=== PATIENT | male | born 1930 | race Caucasian/White ===

== ENCOUNTER 2016-11-13 11:24 | Inpatient (IN) | payer OTHER ==
[~2016-11-13] VITALS: Ht 180.3 cm; Wt 84.0 kg
[2016-11-13] VITALS (18 sets, daily range): BP systolic 72–116; BP diastolic 41–88; PULSE 81–149; TEMP 37–37.1; O2SAT 96–100; Ht 180.3 cm; Wt 84.0 kg
[~2016-11-13 11:24] MED LIST: ACET325T96 PO; ALLO300T2 PO; ASPI-428 PO; BRIM0.1S OPB; CALC600T9 PO; CARV6.252 PO; CYAN100020 PO; DICL1GEL28 TOP; DXY100 PO; FERR325T51 PO; FINA5TAB PO; FISHOIL PO; FOLI1TAB7 PO; GABA800T PO; IPRASOL4 INH; LATA0.009 OPB; LISI-461 PO; MULT-190 PO; MULTTAB PO; NTRGSL/4 UT; POTA1TAB97 PO; PRVC10 PO; SENN-65 PO; SPRIN/30 INH; TERA1CAP63 PO; TRAM-10 PO; TRIA1SPR2 NAE
[2016-11-13] MEDS ORDERED: ERTAPENEM IV 1 GM in SODIUM CHLOR 0.9% AD-VAN 50ML 50 ML IV ONE (12:53)
[2016-11-13] MEDS ORDERED: TRAMADOL HCL 50 MG TAB PO PRN (13:00)
[2016-11-13] MEDS ORDERED: NURSING VERBAL MED ORDER ONE (13:00)
[2016-11-13] MEDS ORDERED: GABAPENTIN 800 MG TAB PO SCH (13:00)
[2016-11-13] MEDS ORDERED: NITROGLYCERIN 0.4 MG SL PER TAB CHARGE UT PRN (13:00)
[2016-11-13] MEDS ORDERED: ERTAPENEM IV 1 GM in SODIUM CHLOR 0.9% AD-VAN 50ML 50 ML IV SCH (13:00)
[2016-11-13 13:31] LABS: HEMATOCRIT 37.6 % (42-52); MEAN CELL VOLUME 88.5 fL (80-100); MEAN CORPUSCULAR HEMOGLOBIN 30.6 pg (25-34); MEAN CORPUSCULAR HGB CONC 34.6 g/dl (32-36); MEAN PLATELET VOLUME 11.1 fL (7.4-10.4); PLATELET COUNT 292 K/uL (130-400); RED BLOOD COUNT 4.25 M/uL (4.7-6.1); WHITE BLOOD COUNT 21.66 K/uL (4.8-10.8)
[2016-11-13 13:45] LABS: INR 1.2 (0.9-1.1); PARTIAL THROMBOPLASTIN RATIO 1.4; PROTHROMBIN TIME (PATIENT) 12.7 SECONDS (9.0-12.0)
[2016-11-13 13:50] LABS: ALT/SGPT 10 U/L (12-78); AST/SGOT 28 U/L (15-37); BLOOD UREA NITROGEN 68 mg/dl (7-18); BUN/CREATININE RATIO 37.9 (10-20); CALCIUM 9.4 mg/dl (8.5-10.1); CARBON DIOXIDE 20 mmol/L (21-32); CHLORIDE 119 mmol/L (98-107); GLUCOSE 118 mg/dl (70-99); SODIUM 151 mmol/L (136-145)
[2016-11-13 13:52] LABS: ALB/GLOB RATIO 0.4 (0.9-2); ALKALINE PHOSPHATASE 93 U/L (45-117)
[2016-11-13] MEDS ORDERED: SODIUM CHLORIDE 0.9% 1000ML 1,000 ML IV ONE (14:30)
--- NOTE | 2016-11-13 14:41 | DIAGNOSTIC IMAGING REPORT ---
CHEST ONE VIEW PORTABLE CLINICAL HISTORY: sepsis COMPARISON STUDY: 08/16/2016 FINDINGS: There are asymmetric bibasal interstitial opacities, similar to the prior study. There is mild right lung volume loss. There is no acute lobar consolidation. There is no significant pleural fluid. The heart is the upper limits of normal in size. There is aortic tortuosity.[ IMPRESSION: Asymmetric micronodular interstitial lung disease right greater than left. Electronically signed by: Roland Davis M.D. 11/13/2016 2:39 PM
[2016-11-13] MEDS ORDERED: METOPROLOL TARTRATE 1 MG/ML VIAL IV PRN (14:45)
[2016-11-13] MEDS ORDERED: AZTREONAM 2000 MG in DEXTROSE 5% 100 ML IV ONE (15:00)
[2016-11-13] MEDS ORDERED: INFLUENZA VIRUS QUAD VACCINE 0.5 ML SYR IM. ONE (15:00)
[2016-11-13] MEDS ORDERED: INFLUENZA ADMINISTRATION CHARGE ONE (15:00)
[2016-11-13] MEDS ORDERED: AZTREONAM CONSULT ACTIVE PRN ×2 (15:00)
[2016-11-13] MEDS ORDERED: ERTAPENEM IV 1 GM in SODIUM CHLOR 0.9% AD-VAN 50ML IV ONE (15:45)
[2016-11-13] MEDS ORDERED: INVANZ~PHARMACY CONSULT IN PROGRESS PRN (15:45)
[2016-11-13] MEDS ORDERED: HEPARIN SOD 5000 UNIT/0.5 ML CARP SQ STA (15:59)
[2016-11-13] MEDS: ALBUT/IPRATROP 3MG/0.5MG NEB 3 ML VIAL INH SCH ×2 (16:12→20:00)
[2016-11-13] MEDS ORDERED: SODIUM CHLORIDE 0.45% 1000ML 1,000 ML IV SCH (17:00)
[2016-11-13] MEDS ORDERED: DIGOXIN IV 250 MCG in SYRINGE 9 ML IV ONE (19:30)
[2016-11-13] MEDS: CARVEDILOL 6.25 MG TAB PO SCH (19:56)
[2016-11-13] MEDS: LATANOPROST 0.005% OP SOLN 2.5 ML BTL OPB SCH (19:57)
[2016-11-13] MEDS: PRAVASTATIN SOD 10 MG TAB PO SCH (19:57)
[2016-11-13] MEDS: DOCUSATE SODIUM/SENNA 50/8.6MG TAB PO SCH (19:57)
[2016-11-13] MEDS ORDERED: CEROVITE ADV FORMULA TAB PO SCH (21:00)
[2016-11-13] MEDS: METOPROLOL TARTRATE 1 MG/ML VIAL IV PRN (21:19)
[2016-11-13] MEDS ORDERED: LEVALBUTEROL 1.25MG/0.5ML NEB INH PRN (21:30)
[2016-11-13] MEDS ORDERED: IPRATROPIUM BROMIDE NEB SOLN 0.02% 2.5 ML VIAL INH PRN (21:30)
[2016-11-13] MEDS: ALBUMIN HUMAN 25% 12.5 GM/50 ML VIAL IV SCH (21:54)
[2016-11-13] MEDS: HEPARIN SOD 5000 UNIT/0.5 ML CARP SQ SCH (21:57)
[2016-11-13 22:29] LABS: BUN/CREATININE RATIO 38.8 (10-20); CALCIUM 9.3 mg/dl (8.5-10.1); POTASSIUM 4.6 mmol/L (3.5-5.1)
--- NOTE | 2016-11-13 23:03 | HISTORY & PHYSICAL EXAMINATION ---
DATE OF ADMISSION: 11/13/2016 PRIMARY CARE PHYSICIAN: As I was told Dr. Avalos from [facility], he lives at [facility]. CHIEF COMPLAINT: Not been eating, drinking and inability to take oral medications this morning. HISTORY OF PRESENT COMPLAINT: He is an 86-year-old male with a significant past medical history including coronary artery disease status post RCA stent in 2008, chronic kidney disease stage III, hyperlipidemia, gout, heterozygous for factor V Leiden mutation, hypertension, obstructive sleep apnea on CPAP, and also benign prostatic hypertrophy, has a chronic indwelling catheter, apparently he resides in [facility]. He was noted to have declining in his general condition for the last few days. He has not been eating or drinking enough and this morning he did not take his oral medications and noted to have further declination of his health and he was advised to come to the hospital. On of this month, he has had a urine test that showed E. coli with ESBL strain and the caring doctor in the [facility] wanted to give IV antibiotic, but no IV medication could be given at [facility] and the patient was transferred to hospital for ongoing treatment. On the way to the hospital, the ambulance crew noticed to have heart rate to be irregular and going up 140 at times. At [facility] on the medical floor, he was not having any acute distress, but EKG did show aFib with a rate of 139 and his blood pressure was systolic 80. From that point, he was transferred to telemetry unit for continuation of care. He was started with intravenous fluid and also blood cultures are taken and he was started with ertapenem IV route. PAST MEDICAL HISTORY: Significant for CAD status post LAD stent in 2008 and RCA stent in 2008 as well, chronic kidney disease, hyperlipidemia, gout, dementia, heterozygous for factor V Leiden mutation, hypertension, obstructive sleep apnea. PAST SURGICAL HISTORY: Significant for vasectomy. FAMILY HISTORY: Diabetes mellitus and also a history of cancer and hypertension. SOCIAL HISTORY: He resides at [facility]. He is . He needs assistance in activities of daily living. ALLERGIES: HE IS ALLERGIC TO AMINOGLYCOSIDES, BACITRACIN, NEOMYCIN, POLYMYXIN, MOLDS AND SMUTS, PENICILLINS, CRESTOR MEDICATIONS: That needs to be updated, but the notes suggests that he has been on Tylenol 650 mg 4 hourly p.r.n., allopurinol 300 mg daily, Voltaren gel as directed, doxycycline 100 mg b.i.d., fish oil 300 mg t.i.d., lisinopril 10 mg daily, Hytrin 10 mg twice daily, calcium 1 tablet daily, ferrous sulfate 325 mg daily, potassium 20 mEq twice daily, aspirin 81 mg daily, Alphagan 1% solution 1 drop OPB t.i.d., Coreg 6.25 mg b.i.d., vitamin B12 1000 units daily, Proscar 5 mg daily, folic acid 1 mg daily, Neurontin 800 mg 4 times daily, DuoNebs 3 mL solution 1 treatment 4 times daily, Xalatan 0.005% one drop OPB q.p.m., multivitamin 1 tablet daily, Nitrostat 0.4 mg sublingual as directed, Ocuvite 1 tablet twice daily, pravastatin 10 mg daily, senna 1 tablet twice daily, Spiriva HandiHaler 1 capsule daily, Ultram 50 mg tablet 2 tablets q. 6 hourly p.r.n. and Nasacort spray as directed. REVIEW OF SYSTEMS: Systemic review as in history of present illness. PHYSICAL EXAMINATION: GENERAL: On the medical floor, he was not having any acute distress. VITAL SIGNS: Temperature 37.0, pulse 130s blood pressure 88/60, saturation 96% on room air, respirations 20. HEENT: Unremarkable. NECK: Supple. No JVD, no bruit. CHEST: Clear to auscultate. HEART: S1, S2 regular. ABDOMEN: Soft, benign. Bowel sounds present. No masses. EXTREMITIES: Negative for any edema. CENTRAL NERVOUS SYSTEM: He was alert and awake, pleasantly confused. LABORATORY DATA: Noted today white count was 21.66, H\T\H 13.0/37.6, platelets was 292. Sodium 151, potassium 5.0, chloride 119, carbon dioxide 20, BUN 68, creatinine 1.80, lactic acid still pending. Random glucose 118. Liver function tests pending. PT/INR unremarkable. UA examination pending. IMAGING DATA: Chest x-ray pending. EKG did show atrial fibrillation, rate of [address]-T wave changes. IMPRESSION AND PLAN: 1. Urinary tract infection with Extended Spectrum Beta-Lactamase bacteria, sensitive to ertapenem. The patient was started with an intravenous fluid for possible sepsis. He does have increased white count and low blood pressure and increased heart rate as well with atrial fibrillation. He will be admitted to telemetry floor and he will be monitored for tachycardia and atrial fibrillation may be secondary to sepsis. 2. Coronary artery disease with a history of cardiac stent, he does not have any cardiac symptoms at this time. Continue with aspirin and hold his beta tonia for low blood pressure. 3. Hypertension. His blood pressure seems to be low at this time, likely secondary to sepsis. Will start his usual medications with the blood pressure is up. 4. Chronic kidney disease. His creatinine went up to 1.8 today. He will get adequate IV fluid and monitor kidney function while in the hospital. 5. Obstructive sleep apnea on CPAP, will continue with his home CTAP. 6. Gastrointestinal prophylaxis with a proton pump inhibitor. 7. Deep venous thrombosis prophylaxis with subcutaneous heparin. 8. Code status. That will need to be discussed with the family members and go from there. As per the previous record, he was do not resuscitate with limited intervention. In my clinical judgment, the beneficiary meets criteria as per CMS for 2-midnight stay in the hospital. BRIGETTE
[2016-11-13 23:04] LABS: URINE APPEARANCE TURBID (CLEAR); URINE COLOR DK YELLOW; URINE NITRITE POS (NEG); URINE SPECIFIC GRAVITY 1.021 (1.000-1.030); UROBILINOGEN NEG (NEG); ZZURINE CULT IF INDIC CATH YES
[2016-11-13 23:05] LABS: MANUAL MICROSCOPIC REQUIRED? NO; REVIEW REQ? YES
[2016-11-13 23:06] LABS: URINE BILIRUBIN NEG (NEG)
[2016-11-13 23:14] LABS: URINE PATH CASTS 0-3 GRANULAR CASTS /lpf (0)
[2016-11-14] VITALS (12 sets, daily range): BP systolic 84–126; BP diastolic 55–111; PULSE 94–134; TEMP 36.3–37; O2SAT 88–100
[2016-11-14] MEDS ORDERED: AZTREONAM IV 1,000 MG in DEXTROSE 5% 100ML IV SCH ×2
[2016-11-14] MEDS ORDERED: DILTIAZEM HCL 5 MG/ML 5 ML VIAL IV STA
[2016-11-14] MEDS: DEXTROSE 5% 1000ML 1,000 ML IV SCH ×2 (00:33→07:53)
[2016-11-14] MEDS ORDERED: NURSING VERBAL MED ORDER ONE (02:30)
[2016-11-14] MEDS ORDERED: MoRPHine SULFATE 4 MG/ML 1 ML CARP\\VIAL ONE (02:32)
[2016-11-14] MEDS ORDERED: LEVALBUTEROL/IPRATROPIUM NEB INH SCH (03:00)
[2016-11-14] MEDS: METOPROLOL TARTRATE 1 MG/ML VIAL IV PRN (03:24)
[2016-11-14] MEDS: ALBUMIN HUMAN 25% 12.5 GM/50 ML VIAL IV SCH ×3 (03:26→16:38)
[2016-11-14] MEDS: LEVALBUTEROL 1.25MG/0.5ML NEB INH SCH ×4 (04:02→19:33)
[2016-11-14] MEDS: IPRATROPIUM BROMIDE NEB SOLN 0.02% 2.5 ML VIAL INH SCH ×4 (04:02→19:33)
[2016-11-14] MEDS: HEPARIN SOD 5000 UNIT/0.5 ML CARP SQ SCH ×3 (05:37→22:14)
[2016-11-14 06:24] LABS: HEMATOCRIT 34.1 % (42-52); MEAN CELL VOLUME 89.5 fL (80-100); MEAN CORPUSCULAR HEMOGLOBIN 29.7 pg (25-34); MEAN CORPUSCULAR HGB CONC 33.1 g/dl (32-36); MEAN PLATELET VOLUME 10.9 fL (7.4-10.4); PLATELET COUNT 250 K/uL (130-400); RED BLOOD COUNT 3.81 M/uL (4.7-6.1); WHITE BLOOD COUNT 14.62 K/uL (4.8-10.8)
[2016-11-14 06:56] LABS: BUN/CREATININE RATIO 34.5 (10-20); CALCIUM 9.1 mg/dl (8.5-10.1); CREATININE 1.9 mg/dl (0.60-1.40); MAGNESIUM 2.9 mg/dl (1.8-2.4); PHOSPHORUS 3.5 mg/dl (2.5-4.9); POTASSIUM 4.3 mmol/L (3.5-5.1)
[2016-11-14] MEDS: MoRPHine SULFATE 4 MG/ML 1 ML CARP\\VIAL IV PRN (07:53)
[2016-11-14] MEDS: CARVEDILOL 6.25 MG TAB PO SCH ×2 (08:01→20:33)
[2016-11-14] MEDS: TRIAMCINOLONE ACET NASAL SPRAY 10.8ML BTL NAE SCH (08:01)
[2016-11-14] MEDS: TIOTROPIUM BROMIDE 5 PUFF/90 MCG INH INH SCH (08:01)
[2016-11-14] MEDS: DOCUSATE SODIUM/SENNA 50/8.6MG TAB PO SCH ×2 (08:02→20:33)
[2016-11-14] MEDS: ASPIRIN 81 MG ECTAB PO SCH (08:02)
[2016-11-14] MEDS: CEROVITE ADV FORMULA TAB PO SCH (08:02)
[2016-11-14] MEDS: FINASTERIDE 5 MG TAB PO SCH (08:02)
[2016-11-14] MEDS: CYANOCOBALAMIN 500 MCG TAB (VIT B-12) PO SCH (08:02)
[2016-11-14] MEDS ORDERED: SODIUM CHLORIDE 0.45% 1000ML 1,000 ML IV SCH (08:15)
[2016-11-14] MEDS: D5W AND 1/2NSS 1,000 ML IV SCH ×2 (08:45→20:34)
[2016-11-14] MEDS: METOPROLOL TARTRATE 1 MG/ML VIAL IV SCH ×3 (11:27→20:31)
--- NOTE | 2016-11-14 13:23 | Progress Note ---
Internal Med Progress Note Date of Service: Nov 14, 2016. Provider Documentation: SUBJECTIVE: The patient seen and examined Remains semiresponsive OBJECTIVE: Vital Signs-as noted below Exam: General-No apparent distress Eyes-Normal ENT-normal Neck-Supple Lungs-Transmitted sound Minimal bibasilar crackles Heart-Irregular Abdomen-Benign,bowel sound present Extremities-No edema Neuro-AA Semiresponsive Lab data as noted below. ASSESSMENT & PLAN: Sepsis secondary to UTI Met the criteria of Sepsis on admission Lactic acid-normal Has had Hypotension on admission-Improved with IVF UTI secondary to Extended Spectrum Beta-Lactamase bacteria, Sensitive to ertapenem. IVF and IV Ertapenem Blood Culture-Gm neg Bacilli in one bottle Urine Culture on 11/11/16 -ESBL ,Repeat Culture-pending Atrial Fibrillation with RVR AF likely secondary to Sepsis Has been on IV BB Received 2 doses of Digoxin Rate is not yet controlled Hypernatremia Likely secondary to Dehydration Continue IVF and recheck Coronary artery disease with a history of cardiac stent, he does not have any cardiac symptoms at this time. Continue with aspirin and hold his Coreg for low blood pressure. Hypertension. His blood pressure seems to be low at this time, likely secondary to sepsis. Will start his usual medications with the blood pressure is up. Acute Renal Failure Chronic kidney disease. His creatinine went up to 1.8 today. IVF and Monitor Obstructive sleep apnea on CPAP, will continue with his home CTAP. Can use his own CPAP Gastrointestinal prophylaxis with a proton pump inhibitor. Deep venous thrombosis prophylaxis with subcutaneous heparin. Code Status:DNR -discussed with the Son Vital Signs: Date Time Temp Pulse Resp B/P Pulse Ox O2 Delivery O2 Flow Rate FiO2 11/14/16 12:00 37.0 134 24 113/70 88 Nasal Cannula 2.0 11/14/16 12:00 97 Nasal Cannula 2.0 11/14/16 11:27 141 113/70 11/14/16 08:00 97 Nasal Cannula 2.0 11/14/16 06:57 36.7 127 20 119/72 97 Nasal Cannula 2.0 Humidified Oxygen 11/14/16 04:03 101 20 98 Nasal Cannula 2.0 11/14/16 04:00 Nasal Cannula 11/14/16 03:24 123 107/66 11/14/16 03:09 116 107/66 11/14/16 02:23 128 121/111 11/14/16 00:23 128 126/63 1/1/17 00:11 36.9 131 20 84/68 98 Nasal Cannula 11/13/16 23:59 Nasal Cannula 11/13/16 23:53 130 108/45 11/13/16 22:30 120 108/56 11/13/16 21:58 118 21 104/52 98 Nasal Cannula 2.0 11/13/16 21:19 143 108/43 11/13/16 20:00 Nasal Cannula 11/13/16 19:56 145 11/13/16 19:30 37.1 145 20 95/72 99 Nasal Cannula 2.0 11/13/16 17:29 102 18 72/56 100 11/13/16 17:14 151 95/55 11/13/16 16:59 85 16 95/55 100 11/13/16 16:29 126 20 96/56 100 11/13/16 16:13 130 20 96 Nasal Cannula 3.0 11/13/16 16:00 100 Nasal Cannula 3.0 11/13/16 15:59 81 20 96/76 100 11/13/16 15:29 89 20 93/44 100 11/13/16 15:06 104 18 81/57 100 11/13/16 14:59 85 17 72/41 100 11/13/16 14:29 103 21 93/76 100 11/13/16 13:59 115 21 95/62 99 11/13/16 13:55 37.0 149 19 116/88 96 Nasal Cannula 3.0 11/13/16 13:26 138 8 116/88 Lab Results: Results Past 24 Hours Test 11/13/16 13:16 11/13/16 13:38 11/13/16 14:08 11/13/16 21:33 Range/Units White Blood Count 21.66 4.8-10.8 K/uL Red Blood Count 4.25 4.7-6.1 M/uL Hemoglobin 13.0 14.0-18.0 g/dL Hematocrit 37.6 42-52 % Mean Corpuscular Volume 88.5 80-100 fL Mean Corpuscular Hemoglobin 30.6 25-34 pg Mean Corpuscular Hemoglobin Concent 34.6 32-36 g/dl RDW Standard Deviation 49.9 36.4-46.3 fL RDW Coefficient of Variation 15.5 11.5-14.5 % Platelet Count 292 130-400 K/uL Mean Platelet Volume 11.1 7.4-10.4 fL Prothrombin Time 12.7 9.0-12.0 SECONDS Prothromb Time International Ratio 1.2 0.9-1.1 Activated Partial Thromboplast Time 35.2 21.0-31.0 SECONDS Partial Thromboplastin Ratio 1.4 Sodium Level 151 152 136-145 mmol/L Potassium Level 5.0 4.6 3.5-5.1 mmol/L Chloride Level 119 119 98-107 mmol/L Carbon Dioxide Level 20 22 21-32 mmol/L Anion Gap 12.0 11.0 3-11 mmol/L Blood Urea Nitrogen 68 78 7-18 mg/dl Creatinine 1.80 2.00 0.60-1.40 mg/dl Estimated GFR () 38.1 33.5 Estimated GFR (Non- 32.9 28.9 BUN/Creatinine Ratio 37.9 38.8 10-20 Random Glucose 118 108 70-99 mg/dl Calcium Level 9.4 9.3 8.5-10.1 mg/dl Total Bilirubin 1.0 0.2-1 mg/dl Aspartate Amino Transf (AST/SGOT) 28 15-37 U/L Alanine Aminotransferase (ALT/SGPT) 10 12-78 U/L Alkaline Phosphatase 93 45-117 U/L Total Protein 6.9 6.4-8.2 gm/dl Albumin 2.1 3.4-5.0 gm/dl Globulin 4.8 2.5-4.0 gm/dl Albumin/Globulin Ratio 0.4 0.9-2 Bedside Glucose 112 70-99 mg/dl Lactic Acid Level 1.6 0.4-2.0 mmol/L Est Creatinine Clear Calc Drug Dose 26.8 ml/min Test 11/13/16 22:46 11/14/16 06:02 Range/Units Urine Color DK YELLOW Urine Appearance TURBID CLEAR Urine pH 5.0 4.5-7.5 Urine Specific [place] 1.021 1.000-1.030 Urine Protein 1+ NEG Urine Glucose (UA) NEG NEG Urine Ketones TRACE NEG Urine Occult Blood 2+ NEG Urine Nitrite POS NEG Urine Bilirubin NEG NEG Urine Urobilinogen NEG NEG Urine Leukocyte Esterase LARGE NEG Urine WBC (Auto) >30 0-5 /hpf Urine RBC (Auto) 10-30 0-4 /hpf Urine Hyaline Casts (Auto) 5-10 0-5 /lpf Urine Epithelial Cells (Auto) 10-20 0-5 /lpf Urine Bacteria (Auto) 2+ NEG Urine Pathogenic Casts 0-3 GRANULAR CASTS 0 /lpf Urine Yeast (Auto) PRESENT NONE PRSENT White Blood Count 14.62 4.8-10.8 K/uL Red Blood Count 3.81 4.7-6.1 M/uL Hemoglobin 11.3 14.0-18.0 g/dL Hematocrit 34.1 42-52 % Mean Corpuscular Volume 89.5 80-100 fL Mean Corpuscular Hemoglobin 29.7 25-34 pg Mean Corpuscular Hemoglobin Concent 33.1 32-36 g/dl RDW Standard Deviation 52.2 36.4-46.3 fL RDW Coefficient of Variation 15.9 11.5-14.5 % Platelet Count 250 130-400 K/uL Mean Platelet Volume 10.9 7.4-10.4 fL Sodium Level 150 136-145 mmol/L Potassium Level 4.3 3.5-5.1 mmol/L Chloride Level 118 98-107 mmol/L Carbon Dioxide Level 23 21-32 mmol/L Anion Gap 9.0 3-11 mmol/L Blood Urea Nitrogen 66 7-18 mg/dl Creatinine 1.90 0.60-1.40 mg/dl Est Creatinine Clear Calc Drug Dose 28.2 ml/min Estimated GFR () 35.7 Estimated GFR (Non- 30.8 BUN/Creatinine Ratio 34.5 10-20 Random Glucose 136 70-99 mg/dl Calcium Level 9.1 8.5-10.1 mg/dl Phosphorus Level 3.5 2.5-4.9 mg/dl Magnesium Level 2.9 1.8-2.4 mg/dl Microbiology Results 11/13/16 Blood Culture, Received Pending 11/13/16 Blood Culture - Preliminary, Resulted Gram Negative Bacilli 11/13/16 Urine Culture, Received Pending
[2016-11-14] MEDS ORDERED: ERTAPENEM IV 1 GM in SODIUM CHLOR 0.9% AD-VAN 50ML IV SCH (16:00)
[2016-11-14] MEDS: MoRPHine SULFATE 2 MG/ML CARP IV PRN (20:31)
[2016-11-14] MEDS: LATANOPROST 0.005% OP SOLN 2.5 ML BTL OPB SCH (20:33)
[2016-11-14] MEDS: PRAVASTATIN SOD 10 MG TAB PO SCH (20:33)
[2016-11-15] VITALS (16 sets, daily range): BP systolic 93–139; BP diastolic 54–82; PULSE 109–129; TEMP 36.5–37.2; O2SAT 91–99
[2016-11-15] MEDS: METOPROLOL TARTRATE 1 MG/ML VIAL IV SCH ×2 (00:03→03:25)
[2016-11-15] MEDS: MoRPHine SULFATE 4 MG/ML 1 ML CARP\\VIAL IV PRN ×6 (00:08→20:54)
[2016-11-15] MEDS: LEVALBUTEROL 1.25MG/0.5ML NEB INH SCH ×4 (01:37→20:36)
[2016-11-15] MEDS: IPRATROPIUM BROMIDE NEB SOLN 0.02% 2.5 ML VIAL INH SCH ×4 (01:37→20:36)
[2016-11-15] MEDS: D5W AND 1/2NSS 1,000 ML IV SCH (06:19)
[2016-11-15] MEDS: HEPARIN SOD 5000 UNIT/0.5 ML CARP SQ SCH ×3 (06:21→23:02)
[2016-11-15 07:17] LABS: HEMATOCRIT 32.3 % (42-52); MEAN CELL VOLUME 87.3 fL (80-100); MEAN CORPUSCULAR HEMOGLOBIN 29.5 pg (25-34); MEAN CORPUSCULAR HGB CONC 33.7 g/dl (32-36); MEAN PLATELET VOLUME 11.5 fL (7.4-10.4); PLATELET COUNT 244 K/uL (130-400); WHITE BLOOD COUNT 11.37 K/uL (4.8-10.8)
[2016-11-15] MEDS: TIOTROPIUM BROMIDE 5 PUFF/90 MCG INH INH SCH (07:47)
[2016-11-15] MEDS: FINASTERIDE 5 MG TAB PO SCH (07:47)
[2016-11-15] MEDS: ASPIRIN 81 MG ECTAB PO SCH (07:47)
[2016-11-15] MEDS: TRIAMCINOLONE ACET NASAL SPRAY 10.8ML BTL NAE SCH (07:47)
[2016-11-15] MEDS: CEROVITE ADV FORMULA TAB PO SCH (07:47)
[2016-11-15] MEDS: CARVEDILOL 6.25 MG TAB PO SCH ×2 (07:47→20:55)
[2016-11-15] MEDS: DOCUSATE SODIUM/SENNA 50/8.6MG TAB PO SCH ×2 (07:47→20:55)
[2016-11-15] MEDS: CYANOCOBALAMIN 500 MCG TAB (VIT B-12) PO SCH (07:48)
[2016-11-15 07:49] LABS: BUN/CREATININE RATIO 36.2 (10-20); CREATININE 1.4 mg/dl (0.60-1.40); POTASSIUM 4.2 mmol/L (3.5-5.1)
--- NOTE | 2016-11-15 08:09 | Clinical Documentation Query ---
CLINICAL DOCUMENTATION QUERY Dr. BYNUM, For proper coding, please indicate any link between the UTI and the pt's chronic gann catheter. In your clinical opinion is this patient being managed for: ( + ) UTI with sepsis due to chronic gann catheter ( ) Other explanation of clinical findings (Please Explain) ( ) Unable to determine (Please Define) ( ) Need to Discuss ( ) Not Agree The medical record reflects the following clinical findings, treatment, and risk factors. Clinical Indicators:86 yo male presenting with UTI and sepsis, noted to have a chronic gann catheter as well as history of UTI's. Treatment: IV fluids with bolus, IV ertapenem, tele Risk Factors: chronic gann catheter Please clarify and document your clinical opinion in the progress notes and discharge summary. Terms such as "probable", "suspected", "likely", "questionable", "possible", or "still to be ruled out" are acceptable. IF IN AGREEMENT, YOU MUST DOCUMENT ABOVE DIAGNOSTIC STATEMENT IN DAILY PROGRESS NOTES AND DISCHARGE SUMMARY. This document is not part of the patient's record. Thank You, Ida Martinez RN [phone]
[2016-11-15] MEDS: METOPROLOL TARTRATE 1 MG/ML VIAL IV. SCH ×4 (08:31→20:53)
[2016-11-15] MEDS ORDERED: DIGOXIN IV 125 MCG in SYRINGE 9.5 ML IV ONE (08:45)
--- NOTE | 2016-11-15 11:40 | Progress Note ---
Internal Med Progress Note Date of Service: Nov 15, 2016. Provider Documentation: SUBJECTIVE: The patient seen and examined Hemodynamically stable Minimally responsive today OBJECTIVE: Vital Signs-as noted below Exam: General-No apparent distress Eyes-Normal ENT-normal Neck-Supple Lungs-Transmitted sound Minimal bibasilar crackles Heart-Irregular Abdomen-Benign,bowel sound present Extremities-No edema Neuro-AA Semiresponsive Lab data as noted below. ASSESSMENT & PLAN: Sepsis secondary to UTI due to Bear Catheter and Gm negative Bacteremia Met the criteria of Sepsis on admission Lactic acid-normal Has had Hypotension on admission-Improved with IVF UTI secondary to Extended Spectrum Beta-Lactamase bacteria, Sensitive to ertapenem. IVF and IV Ertapenem Blood Culture-Gm neg Bacilli in one bottle Urine Culture on 11/11/16 -ESBL ,Repeat Culture-E Coli and Enterococcus: sensitivity pending Clinically better Atrial Fibrillation with RVR AF likely secondary to Sepsis Has been on IV BB Received 2 doses of Digoxin Rate is not yet controlled Will add Digoxin regularly to control Heart rate No anticoagulation now Hypernatremia Likely secondary to Dehydration Continue IVF and recheck Not yet any better Will try D5 infusion Coronary artery disease with a history of cardiac stent, he does not have any cardiac symptoms at this time. Continue with aspirin and hold his Coreg for low blood pressure. Hypertension. His blood pressure seems to be low at this time, likely secondary to sepsis. Will start his usual medications with the blood pressure is up. Acute Renal Failure Chronic kidney disease. His creatinine went up to 1.8 today. IVF and Monitor Improved Obstructive sleep apnea on CPAP, will continue with his home CTAP. Can use his own CPAP Gastrointestinal prophylaxis with a proton pump inhibitor. Deep venous thrombosis prophylaxis with subcutaneous heparin. Code Status:DNR -discussed with the Son Prognosis poor Vital Signs: Date Time Temp Pulse Resp B/P Pulse Ox O2 Delivery O2 Flow Rate FiO2 11/15/16 08:56 119 11/15/16 08:31 129 103/69 11/15/16 08:00 37.2 129 14 93/62 99 Nasal Cannula 4.0 Humidified Oxygen 11/15/16 08:00 91 Nasal Cannula 4.0 11/15/16 07:20 118 20 97 Nasal Cannula 4.0 11/15/16 04:00 97 Nasal Cannula 4.0 11/15/16 03:25 110 108/69 11/15/16 03:00 37.2 115 20 108/69 97 Nasal Cannula 4.0 11/15/16 01:37 111 20 95 Nasal Cannula 4.0 11/15/16 00:58 97 Nasal Cannula 4.0 11/15/16 00:04 36.8 112 18 110/59 97 Nasal Cannula 4.0 11/15/16 00:03 112 110/59 11/14/16 20:31 124 114/53 11/14/16 20:10 91 Nasal Cannula 4.0 11/14/16 19:37 36.3 112 14 121/85 95 Nasal Cannula 4.0 11/14/16 19:34 117 18 100 Nasal Cannula 4.0 11/14/16 16:39 110 123/55 11/14/16 16:00 Nasal Cannula 4.0 11/14/16 15:57 36.3 94 18 123/55 93 4.0 11/14/16 12:00 37.0 134 24 113/70 88 Nasal Cannula 2.0 11/14/16 12:00 97 Nasal Cannula 2.0 Lab Results: Results Past 24 Hours Test 11/15/16 06:54 Range/Units White Blood Count 11.37 4.8-10.8 K/uL Red Blood Count 3.70 4.7-6.1 M/uL Hemoglobin 10.9 14.0-18.0 g/dL Hematocrit 32.3 42-52 % Mean Corpuscular Volume 87.3 80-100 fL Mean Corpuscular Hemoglobin 29.5 25-34 pg Mean Corpuscular Hemoglobin Concent 33.7 32-36 g/dl RDW Standard Deviation 50.4 36.4-46.3 fL RDW Coefficient of Variation 15.6 11.5-14.5 % Platelet Count 244 130-400 K/uL Mean Platelet Volume 11.5 7.4-10.4 fL Sodium Level 151 136-145 mmol/L Potassium Level 4.2 3.5-5.1 mmol/L Chloride Level 119 98-107 mmol/L Carbon Dioxide Level 23 21-32 mmol/L Anion Gap 9.0 3-11 mmol/L Blood Urea Nitrogen 51 7-18 mg/dl Creatinine 1.40 0.60-1.40 mg/dl Est Creatinine Clear Calc Drug Dose 38.3 ml/min Estimated GFR () 51.6 Estimated GFR (Non- 44.5 BUN/Creatinine Ratio 36.2 10-20 Random Glucose 107 70-99 mg/dl Calcium Level 9.0 8.5-10.1 mg/dl
[2016-11-15] MEDS ORDERED: IMIPENEM/CILASTATIN CONSULT ACTIVE PRN (15:30)
[2016-11-15] MEDS ORDERED: IMIPENEM/CILASTATIN IV 500 MG in DEXTROSE 5% 100ML 100 ML IV SCH (15:30)
[2016-11-15] MEDS: IMIPENEM/CILASTATIN IV 250 MG in 5% D5W 100ML IV SCH ×2 (16:06→23:01)
[2016-11-15] MEDS: DEXTROSE 5% 1000ML 1,000 ML IV SCH (16:06)
[2016-11-15] MEDS: DIGOXIN IV SCH (16:07)
[2016-11-15] MEDS: LATANOPROST 0.005% OP SOLN 2.5 ML BTL OPB SCH (20:54)
[2016-11-15] MEDS: PRAVASTATIN SOD 10 MG TAB PO SCH (20:55)
[2016-11-16] VITALS (12 sets, daily range): BP systolic 119–145; BP diastolic 65–91; PULSE 107–124; TEMP 36.5–37.5; O2SAT 93–100
[2016-11-16] MEDS: METOPROLOL TARTRATE 1 MG/ML VIAL IV. SCH ×7 (00:03→23:53)
[2016-11-16] MEDS: MoRPHine SULFATE 4 MG/ML 1 ML CARP\\VIAL IV PRN ×2 (01:22→20:34)
[2016-11-16] MEDS: DEXTROSE 5% 1000ML 1,000 ML IV SCH ×2 (01:23→10:21)
[2016-11-16] MEDS: IPRATROPIUM BROMIDE NEB SOLN 0.02% 2.5 ML VIAL INH SCH ×4 (02:09→20:09)
[2016-11-16] MEDS: LEVALBUTEROL 1.25MG/0.5ML NEB INH SCH ×4 (02:09→20:09)
[2016-11-16] MEDS: IMIPENEM/CILASTATIN IV 250 MG in 5% D5W 100ML IV SCH (04:01)
[2016-11-16] MEDS: HEPARIN SOD 5000 UNIT/0.5 ML CARP SQ SCH ×3 (06:25→22:27)
[2016-11-16 07:39] LABS: CREATININE 1.1 mg/dl (0.60-1.40)
[2016-11-16] MEDS: TRIAMCINOLONE ACET NASAL SPRAY 10.8ML BTL NAE SCH (08:08)
[2016-11-16] MEDS: ASPIRIN 81 MG ECTAB PO SCH (09:00)
[2016-11-16] MEDS: CEROVITE ADV FORMULA TAB PO SCH (09:00)
[2016-11-16] MEDS: TIOTROPIUM BROMIDE 5 PUFF/90 MCG INH INH SCH (09:00)
[2016-11-16] MEDS: CARVEDILOL 6.25 MG TAB PO SCH ×2 (09:00→20:38)
[2016-11-16] MEDS: CYANOCOBALAMIN 500 MCG TAB (VIT B-12) PO SCH (09:00)
[2016-11-16] MEDS: FINASTERIDE 5 MG TAB PO SCH (09:00)
[2016-11-16] MEDS: DOCUSATE SODIUM/SENNA 50/8.6MG TAB PO SCH ×2 (09:00→20:38)
[2016-11-16] MEDS: IMIPENEM/CILASTATIN IV 500 MG in D5W 100ML IV SCH ×2 (10:21→17:31)
[2016-11-16] MEDS: DIGOXIN IV SCH (16:20)
--- NOTE | 2016-11-16 18:43 | Progress Note ---
Medicine Progress Note Date & Time of Visit: Nov 16, 2016 at 18:30. Subjective Pt was seen and examined Lying in bed, doing moaning sound does not follow command, as per family that is his baseline Objective Last 8 Hrs Date Time Temp Pulse Resp B/P Pulse Ox O2 Delivery O2 Flow Rate FiO2 11/16/16 16:21 119 145/71 11/16/16 16:20 131 11/16/16 16:00 100 Nasal Cannula 2.0 11/16/16 15:33 36.8 120 18 145/71 97 11/16/16 14:13 116 14 93 Nasal Cannula 2.0 11/16/16 12:00 100 Nasal Cannula 2.0 11/16/16 11:57 36.5 112 18 119/71 98 11/16/16 11:31 130 119/71 Physical Exam: General- no acute distress Head- atraumatic Eyes- PERRL, anicteric ENT- oropharynx clear Neck- supple, no JVD Lungs- Coarse BS Heart- irregular rhythm Abdomen- normal bowel sounds, soft Extremities- no calf tenderness Neuro- awake, move extremities Skin- warm & dry Laboratory Results: Last 24 Hours Test 11/16/16 06:27 Creatinine 1.10 mg/dl Est Creatinine Clear Calc Drug Dose 49.4 ml/min Estimated GFR () 69.1 Estimated GFR (Non- 59.6 Assessment & Plan Sepsis secondary to UTI due to Bear Catheter and Gm negative Bacteremia Met the criteria of Sepsis on admission Lactic acid-normal Has had Hypotension on admission-Improved with IVF UTI secondary to Extended Spectrum Beta-Lactamase bacteria, Sensitive to ertapenem. IVF and IV Ertapenem Blood Culture-Gm neg Bacilli in one bottle Urine Culture on 11/11/16 -ESBL ,Repeat Culture-E Coli and Enterococcus: sensitivity pending Continue abx Atrial Fibrillation with RVR AF likely secondary to Sepsis Has been on IV BB Rate is not controlled will increase digoxin to 125mcg daily Will add Digoxin regularly to control Heart rate No anticoagulation Lopressor PRN IV added Hypernatremia Likely secondary to Dehydration Continue IVF and recheck will consider to change IVF to d5 N/S if sodium does not improve Coronary artery disease with a history of cardiac stent, Asymptomatic Continue with aspirin and resume his Coreg for low blood pressure. Poor oral intake will consult speech for swallow eval Hypertension. His blood pressure seems to be low at this time, likely secondary to sepsis. Will start his usual medications with the blood pressure is up. Acute Renal Failure on Chronic kidney disease. Creatine is 1.1 Continue monitor BMP Improved FACUNDO On CPAP Can use his own CPAP machine GI Px on PPI DVT px on SQ heparin. Code Status DNR Prognosis poor Current Inpatient Medications: Current Inpatient Medications Medications (Trade) Dose Ordered Sig/Dina Route Start Time Stop Time Status Last Admin Dose Admin Aspirin (Ecotrin Tab) 81 mg DAILY PO 11/14/16 09:00 12/14/16 08:59 Carvedilol (Coreg Tab) 6.25 mg BID PO 11/13/16 21:00 12/13/16 20:59 Finasteride (Proscar Tab) 5 mg DAILY PO 11/14/16 09:00 12/14/16 08:59 Folic Acid (Folvite Tab) 1 mg DAILY PO 11/14/16 09:00 12/14/16 08:59 Latanoprost (Xalatan Oph Soln) 1 drops QPM OPB 11/13/16 21:00 12/13/16 20:59 11/15/16 20:54 1 DROPS Multivitamins/ Minerals (Multivitamin W/ Minerals Tab) 1 tab DAILY PO 11/14/16 09:00 12/14/16 08:59 Nitroglycerin (Nitrostat Tab) 0.4 mg UD PRN UT 11/13/16 13:00 12/13/16 12:59 Pravastatin Sodium (Pravachol Tab) 10 mg HS PO 11/13/16 21:00 12/13/16 20:59 Senna/Docusate Sodium (Senokot S Tab) 1 tab BID PO 11/13/16 21:00 12/13/16 20:59 Tiotropium [place] (Spiriva Handihaler Inhaler) 1 puff DAILY INH 11/14/16 09:00 12/14/16 08:59 Tramadol HCl (Ultram Tab) 100 mg Q6H PRN PO 11/13/16 13:00 12/13/16 12:59 Triamcinolone Acetonide (Nasacort Allergy 24hr) 2 sprays QAM KAYLEEN 11/14/16 09:00 12/14/16 08:59 11/16/16 08:08 2 SPRAYS Miscellaneous Information (Order Awaiting Action) 1 ea QS N/A 11/13/16 16:00 12/13/16 15:59 Cyanocobalamin (Vitamin B-12 Tab) 1,000 mcg DAILY PO 11/14/16 09:00 12/14/16 08:59 Heparin Sodium (Porcine) (Heparin Sq 5000 Unit/0.5ml) 5,000 unit Q8 SQ 11/13/16 22:00 12/13/16 21:59 11/16/16 13:35 5,000 UNIT Ipratropium [place] (Atrovent 0.02% 0.5MG/2.5ML Neb) 0.5 mg Q6R INH 11/14/16 03:00 12/14/16 02:59 11/16/16 14:13 0.5 MG Levalbuterol (Xopenex 1.25MG/ 0.5ML Neb) 1.25 mg Q6R INH 11/14/16 03:00 12/14/16 02:59 11/16/16 14:13 1.25 MG Ipratropium [place] (Atrovent 0.02% 0.5MG/2.5ML Neb) 0.5 mg Q2H PRN INH 11/13/16 21:30 12/13/16 21:29 Levalbuterol (Xopenex 1.25MG/ 0.5ML Neb) 1.25 mg Q2H PRN INH 11/13/16 21:30 12/13/16 21:29 Morphine Sulfate (MoRPHine SULFATE INJ) 2 mg Q2H PRN IV 11/14/16 02:45 11/28/16 02:44 11/14/16 20:31 2 MG Morphine Sulfate (MoRPHine SULFATE INJ) 4 mg Q2H PRN IV 11/14/16 02:45 11/28/16 02:44 11/16/16 01:22 4 MG Metoprolol Tartrate 5 mg 5 mg Q4 IV. 11/15/16 08:00 12/15/16 07:59 11/16/16 16:21 5 MG Digoxin 62.5 mcg/ Syringe 10 ml @ 2 mls/min DAILY@16 IV 11/15/16 16:00 12/15/16 15:59 11/16/16 16:20 2 MLS/MIN Dextrose (D5W 1000ml) 1,000 ml @ 60 mls/hr [id number] IV 11/15/16 16:00 11/16/16 10:21 100 MLS/HR Imipenem/ Cilastatin Sodium 1 ea 1 ea UD PRN N/A 11/15/16 15:30 12/15/16 15:29 Imipenem/ Cilastatin Sodium/ Dextrose (Primaxin Iv/D5 100ml) 110 ml @ 110 mls/hr Q8H IV 11/16/16 10:00 11/25/16 15:59 11/16/16 17:31 110 MLS/HR
[2016-11-16] MEDS: PRAVASTATIN SOD 10 MG TAB PO SCH (20:38)
[2016-11-16] MEDS: LATANOPROST 0.005% OP SOLN 2.5 ML BTL OPB SCH (22:21)
[2016-11-17] VITALS (12 sets, daily range): BP systolic 110–135; BP diastolic 65–98; PULSE 96–124; TEMP 36.4–37.7; O2SAT 93–100
[2016-11-17] MEDS: MoRPHine SULFATE 4 MG/ML 1 ML CARP\\VIAL IV PRN ×3 (01:13→22:16)
[2016-11-17] MEDS: DEXTROSE 5% 1000ML 1,000 ML IV SCH ×2 (01:18→21:50)
[2016-11-17] MEDS: IPRATROPIUM BROMIDE NEB SOLN 0.02% 2.5 ML VIAL INH SCH ×4 (01:55→19:42)
[2016-11-17] MEDS: LEVALBUTEROL 1.25MG/0.5ML NEB INH SCH ×4 (01:55→19:42)
[2016-11-17] MEDS: IMIPENEM/CILASTATIN IV 500 MG in D5W 100ML IV SCH ×3 (02:25→18:17)
[2016-11-17] MEDS: METOPROLOL TARTRATE 1 MG/ML VIAL IV. SCH ×5 (05:06→19:40)
[2016-11-17] MEDS: HEPARIN SOD 5000 UNIT/0.5 ML CARP SQ SCH ×3 (05:08→22:30)
[2016-11-17] MEDS: CARVEDILOL 6.25 MG TAB PO SCH ×2 (08:11→21:00)
[2016-11-17] MEDS: ASPIRIN 81 MG ECTAB PO SCH (08:11)
[2016-11-17] MEDS: TIOTROPIUM BROMIDE 5 PUFF/90 MCG INH INH SCH (08:11)
[2016-11-17] MEDS: CYANOCOBALAMIN 500 MCG TAB (VIT B-12) PO SCH (08:12)
[2016-11-17] MEDS: FINASTERIDE 5 MG TAB PO SCH (08:12)
[2016-11-17] MEDS: DOCUSATE SODIUM/SENNA 50/8.6MG TAB PO SCH ×2 (08:12→21:00)
[2016-11-17] MEDS: CEROVITE ADV FORMULA TAB PO SCH (08:12)
[2016-11-17] MEDS: MoRPHine SULFATE 2 MG/ML CARP IV PRN ×2 (08:16→13:52)
[2016-11-17 08:43] LABS: HEMATOCRIT 31.5 % (42-52); MEAN CELL VOLUME 85.8 fL (80-100); MEAN CORPUSCULAR HEMOGLOBIN 29.4 pg (25-34); MEAN CORPUSCULAR HGB CONC 34.3 g/dl (32-36); MEAN PLATELET VOLUME 11.4 fL (7.4-10.4); PLATELET COUNT 267 K/uL (130-400); RED BLOOD COUNT 3.67 M/uL (4.7-6.1); WHITE BLOOD COUNT 15.19 K/uL (4.8-10.8)
[2016-11-17] MEDS: TRIAMCINOLONE ACET NASAL SPRAY 10.8ML BTL NAE SCH (09:00)
[2016-11-17 09:13] LABS: BUN/CREATININE RATIO 31.3 (10-20); CALCIUM 9.1 mg/dl (8.5-10.1); CREATININE 1.2 mg/dl (0.60-1.40); MAGNESIUM 2.2 mg/dl (1.8-2.4)
[2016-11-17] MEDS: DIGOXIN IV SCH (15:37)
--- NOTE | 2016-11-17 19:25 | Progress Note ---
Medicine Progress Note Date & Time of Visit: Nov 17, 2016 at 19:11. Subjective Pt was seen and examined Continue making the moaning sound Pt has not been eating anything, he failed swallow family member at bedside Will arrange for a meeting with palliative care team tomorrow at 2 pm Pt seems to make less sound and resting when family is around Objective Last 8 Hrs Date Time Temp Pulse Resp B/P Pulse Ox O2 Delivery O2 Flow Rate FiO2 11/17/16 16:02 36.9 113 18 117/82 100 Nasal Cannula 2.0 11/17/16 16:00 Nasal Cannula 2.0 11/17/16 15:38 109 117/82 11/17/16 15:37 107 11/17/16 14:04 108 16 100 Nasal Cannula 2.0 11/17/16 12:17 110 132/83 11/17/16 12:12 37.7 100 15 132/83 99 Nasal Cannula 2.0 11/17/16 12:00 Nasal Cannula 2.0 Physical Exam: General- no acute distress Head- atraumatic Eyes- PERRL, anicteric ENT- oropharynx clear Neck- supple, no JVD Lungs- Coarse BS Heart- irregular rhythm Abdomen- normal bowel sounds, soft Extremities- no calf tenderness Neuro- awake, move extremities Skin- warm & dry Laboratory Results: Last 24 Hours Test 11/17/16 08:27 White Blood Count 15.19 K/uL Red Blood Count 3.67 M/uL Hemoglobin 10.8 g/dL Hematocrit 31.5 % Mean Corpuscular Volume 85.8 fL Mean Corpuscular Hemoglobin 29.4 pg Mean Corpuscular Hemoglobin Concent 34.3 g/dl RDW Standard Deviation 48.9 fL RDW Coefficient of Variation 15.5 % Platelet Count 267 K/uL Mean Platelet Volume 11.4 fL Sodium Level 145 mmol/L Potassium Level 4.0 mmol/L Chloride Level 113 mmol/L Carbon Dioxide Level 21 mmol/L Anion Gap 11.0 mmol/L Blood Urea Nitrogen 38 mg/dl Creatinine 1.20 mg/dl Est Creatinine Clear Calc Drug Dose 45.3 ml/min Estimated GFR () 62.2 Estimated GFR (Non- 53.7 BUN/Creatinine Ratio 31.3 Random Glucose 115 mg/dl Calcium Level 9.1 mg/dl Magnesium Level 2.2 mg/dl Assessment & Plan Sepsis secondary to UTI due to Bear Catheter and Gm negative Bacteremia Met the criteria of Sepsis on admission Lactic acid-normal Has had Hypotension on admission-Improved with IVF UTI secondary to Extended Spectrum Beta-Lactamase bacteria, Sensitive to ertapenem. IVF and IV Ertapenem Blood Culture-Gm neg Bacilli in one bottle Urine Culture on 11/11/16 -ESBL ,Repeat Culture-E Coli and Enterococcus Continue IV abx Blood cx ESCHERICHIA COLI Target Route Dose RX AB Cost M.I.C. IQ ------ ----- ------ -- ------ -------- - ------ TRIMET/SULFA S <=2/38 AMPICILLIN R >16 AMPICILLIN/SUL I 16/8 CEFAZOLIN R >16 CEFOTAXIME R >32 CEFTRIAXONE R >32 CEFEPIME R >16 CEFUROXIME R >16 IMIPENEM S <=1 GENTAMICIN S <=4 TOBRAMYCIN S <=4 AMIKACIN S <=16 CIPROFLOXACIN R >2 LEVOFLOXACIN R >4 ERTAPENEM S <=1 PIP/TAZO S <=16 Urine Cx E COLI E FAECALIS M.I.C. RX M.I.C. RX --------- ------ --------- ------ TRIMET/SULFA <=2/38 S AMPICILLIN >16 R <=2 S AMPICILLIN/SUL 16/8 I CEFAZOLIN >16 R CEFOTAXIME >32 R CEFTRIAXONE >32 R CEFEPIME >16 R CEFUROXIME >16 R IMIPENEM <=1 S GENT SYNERGY >500 R VANCOMYCIN 2 S PENICILLIN 8 S GENTAMICIN <=4 S TOBRAMYCIN <=4 S AMIKACIN <=16 S CIPROFLOXACIN >2 R LEVOFLOXACIN >4 R ERTAPENEM <=1 S DAPTOMYCIN 1 S NITROFURANTOIN 64 I <=32 S PIP/TAZO <=16 S STREP SYNERGY >1000 R Atrial Fibrillation with RVR AF likely secondary to Sepsis Has been on IV BB Rate is not controlled will increase digoxin to 125mcg daily if HR not controlled No anticoagulation Lopressor PRN IV added Hypernatremia Likely secondary to Dehydration Continue IVF and recheck normal Coronary artery disease with a history of cardiac stent, Asymptomatic Continue with aspirin and resume his Coreg for low blood pressure. Poor oral intake Failed swallow eval no tube feeding for now as per family Will meet with palliative care tomorrow Hypertension. His blood pressure seems to be low at this time, likely secondary to sepsis. BP stable Acute Renal Failure on Chronic kidney disease. Creatine is 1.1 Continue monitor BMP Improved FACUNDO On CPAP Can use his own CPAP machine GI Px on PPI DVT px on SQ heparin. Code Status DNR Prognosis poor Current Inpatient Medications: Current Inpatient Medications Medications (Trade) Dose Ordered Sig/Dina Route Start Time Stop Time Status Last Admin Dose Admin Aspirin (Ecotrin Tab) 81 mg DAILY PO 11/14/16 09:00 12/14/16 08:59 Carvedilol (Coreg Tab) 6.25 mg BID PO 11/13/16 21:00 12/13/16 20:59 Finasteride (Proscar Tab) 5 mg DAILY PO 11/14/16 09:00 12/14/16 08:59 Folic Acid (Folvite Tab) 1 mg DAILY PO 11/14/16 09:00 12/14/16 08:59 Latanoprost (Xalatan Oph Soln) 1 drops QPM OPB 11/13/16 21:00 12/13/16 20:59 11/16/16 22:21 1 DROPS Multivitamins/ Minerals (Multivitamin W/ Minerals Tab) 1 tab DAILY PO 11/14/16 09:00 12/14/16 08:59 Nitroglycerin (Nitrostat Tab) 0.4 mg UD PRN UT 11/13/16 13:00 12/13/16 12:59 Pravastatin Sodium (Pravachol Tab) 10 mg HS PO 11/13/16 21:00 12/13/16 20:59 Senna/Docusate Sodium (Senokot S Tab) 1 tab BID PO 11/13/16 21:00 12/13/16 20:59 Tiotropium [place] (Spiriva Handihaler Inhaler) 1 puff DAILY INH 11/14/16 09:00 12/14/16 08:59 Tramadol HCl (Ultram Tab) 100 mg Q6H PRN PO 11/13/16 13:00 12/13/16 12:59 Triamcinolone Acetonide (Nasacort Allergy 24hr) 2 sprays QAM KAYLEEN 11/14/16 09:00 12/14/16 08:59 11/16/16 08:08 2 SPRAYS Miscellaneous Information (Order Awaiting Action) 1 ea QS N/A 11/13/16 16:00 12/13/16 15:59 Cyanocobalamin (Vitamin B-12 Tab) 1,000 mcg DAILY PO 11/14/16 09:00 12/14/16 08:59 Heparin Sodium (Porcine) (Heparin Sq 5000 Unit/0.5ml) 5,000 unit Q8 SQ 11/13/16 22:00 12/13/16 21:59 11/17/16 13:55 5,000 UNIT Ipratropium [place] (Atrovent 0.02% 0.5MG/2.5ML Neb) 0.5 mg Q6R INH 11/14/16 03:00 12/14/16 02:59 11/17/16 14:03 0.5 MG Levalbuterol (Xopenex 1.25MG/ 0.5ML Neb) 1.25 mg Q6R INH 11/14/16 03:00 12/14/16 02:59 11/17/16 14:03 1.25 MG Ipratropium [place] (Atrovent 0.02% 0.5MG/2.5ML Neb) 0.5 mg Q2H PRN INH 11/13/16 21:30 12/13/16 21:29 Levalbuterol (Xopenex 1.25MG/ 0.5ML Neb) 1.25 mg Q2H PRN INH 11/13/16 21:30 12/13/16 21:29 Morphine Sulfate (MoRPHine SULFATE INJ) 2 mg Q2H PRN IV 11/14/16 02:45 11/28/16 02:44 11/17/16 13:52 2 MG Morphine Sulfate (MoRPHine SULFATE INJ) 4 mg Q2H PRN IV 11/14/16 02:45 11/28/16 02:44 11/17/16 16:25 4 MG Metoprolol Tartrate 5 mg 5 mg Q4 IV. 11/15/16 08:00 12/15/16 07:59 11/17/16 15:38 5 MG Digoxin 62.5 mcg/ Syringe 10 ml @ 2 mls/min DAILY@16 IV 11/15/16 16:00 12/15/16 15:59 11/17/16 15:37 2 MLS/MIN Dextrose (D5W 1000ml) 1,000 ml @ 60 mls/hr [id number] IV 11/15/16 16:00 11/17/16 01:18 60 MLS/HR Imipenem/ Cilastatin Sodium 1 ea 1 ea UD PRN N/A 11/15/16 15:30 12/15/16 15:29 Imipenem/ Cilastatin Sodium/ Dextrose (Primaxin Iv/D5 100ml) 110 ml @ 110 mls/hr Q8H IV 11/16/16 10:00 11/25/16 15:59 11/17/16 18:17 110 MLS/HR
[2016-11-17] MEDS: PRAVASTATIN SOD 10 MG TAB PO SCH (21:00)
[2016-11-17] MEDS: LATANOPROST 0.005% OP SOLN 2.5 ML BTL OPB SCH (21:49)
[2016-11-18] VITALS (8 sets, daily range): BP systolic 99–138; BP diastolic 54–89; PULSE 81–133; TEMP 36.3–37; O2SAT 91–100
[2016-11-18] MEDS: METOPROLOL TARTRATE 1 MG/ML VIAL IV. SCH ×7 (00:26→19:54)
[2016-11-18] MEDS: LEVALBUTEROL 1.25MG/0.5ML NEB INH SCH ×4 (02:01→19:15)
[2016-11-18] MEDS: IPRATROPIUM BROMIDE NEB SOLN 0.02% 2.5 ML VIAL INH SCH ×4 (02:01→19:15)
[2016-11-18] MEDS: IMIPENEM/CILASTATIN IV 500 MG in D5W 100ML IV SCH ×2 (02:20→10:22)
[2016-11-18] MEDS: HEPARIN SOD 5000 UNIT/0.5 ML CARP SQ SCH ×3 (06:18→22:11)
[2016-11-18 07:07] LABS: BUN/CREATININE RATIO 31.8 (10-20); CALCIUM 8.7 mg/dl (8.5-10.1); CREATININE 1.2 mg/dl (0.60-1.40); MAGNESIUM 2.1 mg/dl (1.8-2.4); PHOSPHORUS 2.5 mg/dl (2.5-4.9); POTASSIUM 3.9 mmol/L (3.5-5.1)
[2016-11-18 07:11] LABS: MEAN CELL VOLUME 83.1 fL (80-100); MEAN CORPUSCULAR HEMOGLOBIN 29.6 pg (25-34); MEAN CORPUSCULAR HGB CONC 35.6 g/dl (32-36); MEAN PLATELET VOLUME 11.4 fL (7.4-10.4); PLATELET COUNT 304 K/uL (130-400); RED BLOOD COUNT 4.09 M/uL (4.7-6.1); WHITE BLOOD COUNT 23.24 K/uL (4.8-10.8)
[2016-11-18 07:29] LABS: BASO ABS # 0.01 K/uL (0-0.2); COMPLETE YES; EOS % 0.3 %; IG% 2.1 %; LYMPH % 5.4 %; LYMPH ABS # 1.26 K/uL (1.2-3.4); MONO % 1.9 %; NEUT % 90.3 %
[2016-11-18] MEDS: CARVEDILOL 6.25 MG TAB PO SCH ×2 (08:39→19:28)
[2016-11-18] MEDS: TRIAMCINOLONE ACET NASAL SPRAY 10.8ML BTL NAE SCH (08:39)
[2016-11-18] MEDS: TIOTROPIUM BROMIDE 5 PUFF/90 MCG INH INH SCH (08:39)
[2016-11-18] MEDS: ASPIRIN 81 MG ECTAB PO SCH (08:39)
[2016-11-18] MEDS: FINASTERIDE 5 MG TAB PO SCH (08:40)
[2016-11-18] MEDS: CYANOCOBALAMIN 500 MCG TAB (VIT B-12) PO SCH (08:40)
[2016-11-18] MEDS: DOCUSATE SODIUM/SENNA 50/8.6MG TAB PO SCH ×2 (08:40→19:28)
[2016-11-18] MEDS: CEROVITE ADV FORMULA TAB PO SCH (08:40)
[2016-11-18] MEDS: DIGOXIN IV 125 MCG in SYRINGE 9.5 ML IV SCH (09:27)
--- NOTE | 2016-11-18 09:50 | Medical Consult ---
Consultation Date of Consultation: Nov 18, 2016. Attending Physician: Nazario Wyman M.D. Reason for Consultation: Bacteremia History of Present Illness Patient is an 86-year-old male who presented for admission from [facility] with concerns of inability to drink or eat. The patient was noted to have a general decline in his overall condition. History was taken from patient's previous records and notes due to inability to answer review of systems questions or history questions. Because of the patient's overall decline in his health, he was admitted to the hospital for evaluation. On 11/11, the patient did have a positive urine culture at [facility] for ESBL producing E coli, but IV antibiotics were not initiated at that time. Since admission, the patient has been encephalopathic and lethargic. He did have another urine culture completed which once again grew ESBL producing E coli along with Enterococcus faecalis. Blood cultures also grew the same E coli in 1 /2 initial cultures. He was started on IV imipenem. His white blood cell count on admission was 21.66 and continues to be 23.2 today. His creatinine is 1.20. A chest x-ray showed micronodular interstitial lung disease. Past Medical/Surgical History Medical Problems: (1) Acute renal failure Status: Acute (2) Altered mental status Status: Acute (3) Altered mental status Status: Acute (4) Altered mental status Status: Acute (5) Back pain Status: Acute (6) Pneumonia Status: Acute (7) Pneumonia Status: Acute (8) Recurrent UTI Status: Acute (9) Urinary frequency Status: Acute (10) Urinary incontinence Status: Acute (11) Urinary retention Status: Acute Medical Problems: (1) Acute renal failure (ARF) (2) Atrial fibrillation with rapid ventricular response (3) BPH (benign prostatic hyperplasia) (4) CAD (coronary artery disease) (5) CKD (chronic kidney disease), stage III (6) DM type 2 (diabetes mellitus, type 2) (7) Dyslipidemia (8) Gout (9) Heterozygous factor V Leiden mutation (10) HTN (hypertension) (11) Nocturnal hypoxia (12) FACUNDO on CPAP (13) Sepsis due to urinary tract infection Surgical Problems: (1) Hx of vasectomy (2) S/P coronary artery stent placement Family History Diabetes mellitus FH: cancer FH: heart disease FH: lung disease Hypertension Noncontributory Social History Smoking Status: Unknown if Ever Smoked Marital Status: Housing Status: lives with family Occupation Status: retired Allergies Coded Allergies: Aminoglycosides (Unverified Allergy, Mild, UNSURE, 03/04/16) Bacitracin (Unverified Allergy, Mild, UNSURE, 08/16/16) Neomycin (Unverified Allergy, Mild, UNSURE, 08/16/16) Polymyxin B (Unverified Allergy, Mild, UNSURE, 08/16/16) Molds and Smuts (Verified Allergy, Unknown, ., 08/16/16) Penicillins (Verified Allergy, Unknown, unknown, 08/16/16) Rosuvastatin (Verified Allergy, Unknown, unknown, 08/16/16) Oxybutynin (Verified Adverse Reaction, Severe, GI SYMPTOMS, 08/16/16) 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 required colonoscopic decompression of right colon 03/26/16. Home Medications Current Inpatient Medications Medications (Trade) Dose Ordered Sig/Dina Route Start Time Stop Time Status Last Admin Dose Admin Aspirin (Ecotrin Tab) 81 mg DAILY PO 11/14/16 09:00 12/14/16 08:59 Carvedilol (Coreg Tab) 6.25 mg BID PO 11/13/16 21:00 12/13/16 20:59 Finasteride (Proscar Tab) 5 mg DAILY PO 11/14/16 09:00 12/14/16 08:59 Folic Acid (Folvite Tab) 1 mg DAILY PO 11/14/16 09:00 12/14/16 08:59 Latanoprost (Xalatan Oph Soln) 1 drops QPM OPB 11/13/16 21:00 12/13/16 20:59 11/17/16 21:49 1 DROPS Multivitamins/ Minerals (Multivitamin W/ Minerals Tab) 1 tab DAILY PO 11/14/16 09:00 12/14/16 08:59 Nitroglycerin (Nitrostat Tab) 0.4 mg UD PRN UT 11/13/16 13:00 12/13/16 12:59 Pravastatin Sodium (Pravachol Tab) 10 mg HS PO 11/13/16 21:00 12/13/16 20:59 Senna/Docusate Sodium (Senokot S Tab) 1 tab BID PO 11/13/16 21:00 12/13/16 20:59 Tiotropium [place] (Spiriva Handihaler Inhaler) 1 puff DAILY INH 11/14/16 09:00 12/14/16 08:59 Tramadol HCl (Ultram Tab) 100 mg Q6H PRN PO 11/13/16 13:00 12/13/16 12:59 Triamcinolone Acetonide (Nasacort Allergy 24hr) 2 sprays QAM KAYLEEN 11/14/16 09:00 12/14/16 08:59 11/16/16 08:08 2 SPRAYS Miscellaneous Information (Order Awaiting Action) 1 ea QS N/A 11/13/16 16:00 12/13/16 15:59 Cyanocobalamin (Vitamin B-12 Tab) 1,000 mcg DAILY PO 11/14/16 09:00 12/14/16 08:59 Heparin Sodium (Porcine) (Heparin Sq 5000 Unit/0.5ml) 5,000 unit Q8 SQ 11/13/16 22:00 12/13/16 21:59 11/18/16 06:18 5,000 UNIT Ipratropium [place] (Atrovent 0.02% 0.5MG/2.5ML Neb) 0.5 mg Q6R INH 11/14/16 03:00 12/14/16 02:59 11/17/16 19:42 0.5 MG Levalbuterol (Xopenex 1.25MG/ 0.5ML Neb) 1.25 mg Q6R INH 11/14/16 03:00 12/14/16 02:59 11/17/16 19:42 1.25 MG Ipratropium [place] (Atrovent 0.02% 0.5MG/2.5ML Neb) 0.5 mg Q2H PRN INH 11/13/16 21:30 12/13/16 21:29 Levalbuterol (Xopenex 1.25MG/ 0.5ML Neb) 1.25 mg Q2H PRN INH 11/13/16 21:30 12/13/16 21:29 Morphine Sulfate (MoRPHine SULFATE INJ) 2 mg Q2H PRN IV 11/14/16 02:45 11/28/16 02:44 11/17/16 13:52 2 MG Morphine Sulfate (MoRPHine SULFATE INJ) 4 mg Q2H PRN IV 11/14/16 02:45 11/28/16 02:44 11/17/16 22:16 4 MG Metoprolol Tartrate 5 mg 5 mg Q4 IV. 11/15/16 08:00 12/15/16 07:59 11/18/16 08:04 5 MG Dextrose (D5W 1000ml) 1,000 ml @ 60 mls/hr [id number] IV 11/15/16 16:00 11/17/16 21:50 60 MLS/HR Imipenem/ Cilastatin Sodium 1 ea 1 ea UD PRN N/A 11/15/16 15:30 12/15/16 15:29 Imipenem/ Cilastatin Sodium 500 mg/Dextrose 110 ml @ 110 mls/hr Q8H IV 11/16/16 10:00 11/25/16 15:59 11/18/16 02:20 110 MLS/HR Digoxin/Syringe (Digoxin IV/ Syringe) 10 ml @ 2 mls/min DAILY@16 IV 11/18/16 09:00 12/18/16 08:59 11/18/16 09:27 2 MLS/MIN Current Inpatient Medications Current Inpatient Medications Medications (Trade) Dose Ordered Sig/Dina Route Start Time Stop Time Status Last Admin Dose Admin Aspirin (Ecotrin Tab) 81 mg DAILY PO 11/14/16 09:00 12/14/16 08:59 Carvedilol (Coreg Tab) 6.25 mg BID PO 11/13/16 21:00 12/13/16 20:59 Finasteride (Proscar Tab) 5 mg DAILY PO 11/14/16 09:00 12/14/16 08:59 Folic Acid (Folvite Tab) 1 mg DAILY PO 11/14/16 09:00 12/14/16 08:59 Latanoprost (Xalatan Oph Soln) 1 drops QPM OPB 11/13/16 21:00 12/13/16 20:59 11/17/16 21:49 1 DROPS Multivitamins/ Minerals (Multivitamin W/ Minerals Tab) 1 tab DAILY PO 11/14/16 09:00 12/14/16 08:59 Nitroglycerin (Nitrostat Tab) 0.4 mg UD PRN UT 11/13/16 13:00 12/13/16 12:59 Pravastatin Sodium (Pravachol Tab) 10 mg HS PO 11/13/16 21:00 12/13/16 20:59 Senna/Docusate Sodium (Senokot S Tab) 1 tab BID PO 11/13/16 21:00 12/13/16 20:59 Tiotropium [place] (Spiriva Handihaler Inhaler) 1 puff DAILY INH 11/14/16 09:00 12/14/16 08:59 Tramadol HCl (Ultram Tab) 100 mg Q6H PRN PO 11/13/16 13:00 12/13/16 12:59 Triamcinolone Acetonide (Nasacort Allergy 24hr) 2 sprays QAM KAYLEEN 11/14/16 09:00 12/14/16 08:59 11/16/16 08:08 2 SPRAYS Miscellaneous Information (Order Awaiting Action) 1 ea QS N/A 11/13/16 16:00 12/13/16 15:59 Cyanocobalamin (Vitamin B-12 Tab) 1,000 mcg DAILY PO 11/14/16 09:00 12/14/16 08:59 Heparin Sodium (Porcine) (Heparin Sq 5000 Unit/0.5ml) 5,000 unit Q8 SQ 11/13/16 22:00 12/13/16 21:59 11/18/16 06:18 5,000 UNIT Ipratropium [place] (Atrovent 0.02% 0.5MG/2.5ML Neb) 0.5 mg Q6R INH 11/14/16 03:00 12/14/16 02:59 11/17/16 19:42 0.5 MG Levalbuterol (Xopenex 1.25MG/ 0.5ML Neb) 1.25 mg Q6R INH 11/14/16 03:00 12/14/16 02:59 11/17/16 19:42 1.25 MG Ipratropium [place] (Atrovent 0.02% 0.5MG/2.5ML Neb) 0.5 mg Q2H PRN INH 11/13/16 21:30 12/13/16 21:29 Levalbuterol (Xopenex 1.25MG/ 0.5ML Neb) 1.25 mg Q2H PRN INH 11/13/16 21:30 12/13/16 21:29 Morphine Sulfate (MoRPHine SULFATE INJ) 2 mg Q2H PRN IV 11/14/16 02:45 11/28/16 02:44 11/17/16 13:52 2 MG Morphine Sulfate (MoRPHine SULFATE INJ) 4 mg Q2H PRN IV 11/14/16 02:45 11/28/16 02:44 11/17/16 22:16 4 MG Metoprolol Tartrate 5 mg 5 mg Q4 IV. 11/15/16 08:00 12/15/16 07:59 11/18/16 08:04 5 MG Dextrose (D5W 1000ml) 1,000 ml @ 60 mls/hr [id number] IV 11/15/16 16:00 11/17/16 21:50 60 MLS/HR Imipenem/ Cilastatin Sodium 1 ea 1 ea UD PRN N/A 11/15/16 15:30 12/15/16 15:29 Imipenem/ Cilastatin Sodium 500 mg/Dextrose 110 ml @ 110 mls/hr Q8H IV 11/16/16 10:00 11/25/16 15:59 11/18/16 02:20 110 MLS/HR Digoxin/Syringe (Digoxin IV/ Syringe) 10 ml @ 2 mls/min DAILY@16 IV 11/18/16 09:00 12/18/16 08:59 11/18/16 09:27 2 MLS/MIN Review of Systems Patient unable to answer ROS questions due to current state Physical Exam Date Time Temp Pulse Resp B/P Pulse Ox O2 Delivery O2 Flow Rate FiO2 11/18/16 09:27 128 11/18/16 08:33 36.6 133 22 99/54 98 11/18/16 08:04 132 110/44 11/18/16 04:16 36.7 123 30 91 3.0 11/18/16 04:04 142 110/60 11/18/16 04:00 Nasal Cannula 2.0 11/18/16 00:26 122 118/88 11/18/16 00:00 Nasal Cannula 2.0 11/17/16 23:59 37.0 122 20 118/89 98 2.0 11/17/16 20:51 36.4 107 16 117/85 99 Nasal Cannula 2.0 11/17/16 20:00 100 Nasal Cannula 2.0 11/17/16 19:44 96 18 100 Nasal Cannula 2.0 11/17/16 19:40 107 117/82 11/17/16 16:02 36.9 113 18 117/82 100 Nasal Cannula 2.0 11/17/16 16:00 Nasal Cannula 2.0 11/17/16 15:38 109 117/82 11/17/16 15:37 107 11/17/16 14:04 108 16 100 Nasal Cannula 2.0 11/17/16 12:17 110 132/83 11/17/16 12:12 37.7 100 15 132/83 99 Nasal Cannula 2.0 11/17/16 12:00 Nasal Cannula 2.0 11/17/16 09:50 110/68 General Appearance: WD/WN, no apparent distress Head: normocephalic, atraumatic Eyes: normal inspection ENT: hearing grossly normal Neck: supple Respiratory/Chest: chest non-tender, no respiratory distress, no accessory muscle use, + crackles (right base) Cardiovascular: regular rate, rhythm, no gallop, no murmur, + tachycardia Abdomen/GI: normal bowel sounds, soft Back: normal inspection, no CVA tenderness Extremities/Musculoskelatal: normal inspection, + pedal edema (trace) Neurologic/Psych: alert, oriented x 3, + disoriented, + pertinent finding ( responds only with grunts/yelling on and off- no meaningful conversation or words) Skin: normal color, warm/dry, no rash Lymphatic: no adenopathy Laboratory Results RUN DATE: 11/16/16 [facility] LAB PAGE 1 RUN TIME: 1200 Specimen Inquiry PATIENT: SAVANNAH SAMUEL LOC: [facility] U # : [id number] AGE/SX: 86/M ROOM: E212 REG : 11/13/[address]: Nazario Wyman M.D. : 1930 BED: 1 DIS : STATUS: ADM IN TLOC: SPEC #: [id number] NEVIN: 11/13/16 STATUS: COMP REQ #: [id number] RECD: 11/13/[address]: Kosta Perez M.D. SOURCE: URINE CATH ENTR: 11/13/[address] [facility] [address]: Pratik Potter D.O. [facility] ORDERED: CULTURE UR CATH Procedure Result Verified Site URINE CULTURE Final 11/16/16-1153 Organism 1 ESCHERICHIA COLI COLONY COUNT >100,000 CFU/ml SENS SENSITIVITY TO FOLLOW Organism 2 ENTEROCOCCUS FAECALIS COLONY COUNT >100,000 CFU/ml SENS SENSITIVITY TO FOLLOW SENSITIVITY RESULT INDICATES AN ORGANISM WITH AN EXTENDED SPECTRUM BETA LACTAMASE.THIS IS CONSIDERED A MULTIDRUG RESISTANT ORGANISM.PHONED TO EDWIN DEWITT ON 11/16/16 AT 0725 BY Carlos Boateng. Results were verbalized back to SEBASTIEN. RESULTS WERE ALSO CALLED TO [facility] CONTROL ANSWERING MACHINE ON 11/16/16 BY SEBASTIEN. E COLI E FAECALIS M.I.C. RX M.I.C. RX --------- ------ --------- ------ TRIMET/SULFA <=2/38 S AMPICILLIN >16 R <=2 S AMPICILLIN/SUL 16/8 I CEFAZOLIN >16 R CEFOTAXIME >32 R CEFTRIAXONE >32 R CEFEPIME >16 R CEFUROXIME >16 R IMIPENEM <=1 S GENT SYNERGY >500 R VANCOMYCIN 2 S PENICILLIN 8 S GENTAMICIN <=4 S TOBRAMYCIN <=4 S AMIKACIN <=16 S CIPROFLOXACIN >2 R LEVOFLOXACIN >4 R ERTAPENEM <=1 S DAPTOMYCIN 1 S NITROFURANTOIN 64 I <=32 S PIP/TAZO <=16 S STREP SYNERGY >1000 R CONTINUED ON NEXT PAGE RUN DATE: 11/16/16 [facility] LAB PAGE 2 RUN TIME: 1200 Specimen Inquiry SPEC: [id number] PATIENT: SAVANNAH SAMUEL [id number] ( Continued) Procedure Result Verified Site URINE CULTURE Final (continued) ENTEROCOCCUS FAECALIS: POSITIVE COMBO 33 Streptomycin Synergy Screen R Gentamicin Synergy Screen R 1. ESCHERICHIA COLI Target Route Dose RX AB Cost M.I.C. IQ ------ ----- ------ -- ------ -------- - ------ TRIMET/SULFA S <=2/38 AMPICILLIN R >16 AMPICILLIN/SUL I 16/8 CEFAZOLIN R >16 CEFOTAXIME R >32 CEFTRIAXONE R >32 CEFEPIME R >16 CEFUROXIME R >16 IMIPENEM S <=1 GENTAMICIN S <=4 TOBRAMYCIN S <=4 AMIKACIN S <=16 CIPROFLOXACIN R >2 LEVOFLOXACIN R >4 ERTAPENEM S <=1 NITROFURANTOIN I 64 PIP/TAZO S <=16 2. ENTEROCOCCUS FAECALIS Target Route Dose RX AB Cost M.I.C. IQ ------ ----- ------ -- ------ -------- - ------ AMPICILLIN S <=2 GENT SYNERGY R >500 VANCOMYCIN S 2 PENICILLIN S 8 DAPTOMYCIN S 1 NITROFURANTOIN S <=32 STREP SYNERGY R >1000 Streptomycin Synergy Screen R Gentamicin Synergy Screen R S = SENSITIVE I = INTERMEDIATE R = RESISTANT Item Value Date Time Urine Culture - Final Complete 11/13/16 2246 Urine,Catheterized Escherichia Coli Blood Culture - Preliminary Resulted 11/13/16 1316 Blood NO GROWTH TO DATE. Blood Culture - Final Complete 11/13/16 1316 Blood Escherichia Coli Last 24 Hours Test 11/18/16 05:15 11/18/16 06:15 Sodium Level 141 mmol/L Potassium Level 3.9 mmol/L Chloride Level 111 mmol/L Carbon Dioxide Level 19 mmol/L Anion Gap 11.0 mmol/L Blood Urea Nitrogen 38 mg/dl Creatinine 1.20 mg/dl Est Creatinine Clear Calc Drug Dose 45.3 ml/min Estimated GFR () 62.2 Estimated GFR (Non- 53.7 BUN/Creatinine Ratio 31.8 Random Glucose 124 mg/dl Calcium Level 8.7 mg/dl Phosphorus Level 2.5 mg/dl Magnesium Level 2.1 mg/dl White Blood Count 23.24 K/uL Red Blood Count 4.09 M/uL Hemoglobin 12.1 g/dL Hematocrit 34.0 % Mean Corpuscular Volume 83.1 fL Mean Corpuscular Hemoglobin 29.6 pg Mean Corpuscular Hemoglobin Concent 35.6 g/dl Platelet Count 304 K/uL Mean Platelet Volume 11.4 fL Neutrophils (%) (Auto) 90.3 % Lymphocytes (%) (Auto) 5.4 % Monocytes (%) (Auto) 1.9 % Eosinophils (%) (Auto) 0.3 % Basophils (%) (Auto) 0.0 % Neutrophils # (Auto) 20.99 K/uL Lymphocytes # (Auto) 1.26 K/uL Monocytes # (Auto) 0.44 K/uL Eosinophils # (Auto) 0.06 K/uL Basophils # (Auto) 0.01 K/uL RDW Standard Deviation 46.9 fL RDW Coefficient of Variation 15.5 % Immature Granulocyte % (Auto) 2.1 % Immature Granulocyte # (Auto) 0.48 K/uL Red Blood Cell Morphology Unremarkable Assessment & Plan Patient with E. Coli bacteremia, E. Coli and Enterococcal UTI, and possible aspiration event over night. He does have history of positive MRSA nasal swab in August 2016. He is currently on IV Imipenem- will change to IV Ertapenem. Due to concerns for aspiration, will add IV Vancomycin as well for now to cover MRSA and also Enterococcus in Urine with PCN allergy. Will repeat blood cultures as well. Patient will need at least 2 weeks of antibiotic therapy for E. Coli bacteremia. With ANALIA on admission, not sure PO Bactrim is the best option for transition after improvement. May consider continued therapy with IV abx pending further improvement. We will follow. Plan: 1. Change Imipenem to Ertapenem 2. Add Vancomycin 3. Repeat blood cultures PROVIDER ADDENDUM: Patient examined and reviewed with Ms. Wilks. Agree with above assessment.
[2016-11-18] MEDS ORDERED: VANCOMYCIN CONSULT ACTIVE PRN (12:00)
[2016-11-18] MEDS ORDERED: VANCOMYCIN INJ 2,000 MG in SODIUM CHLORIDE 0.9% 500ML 500 ML IV SCH (12:30)
--- NOTE | 2016-11-18 13:31 | Pharmacy Progress Note ---
Pharmacy Antibiotic Consult Date of Service: Nov 18, 2016. Pharmacy Dosing Scope Pharmacy is consulted to initiate IV dosing therapy, order appropriate labs and adjust drug dose/frequency. Subjective The patient is a 86 year old male admitted on Nov 13, 2016 at 12:32. He is currently receiving Primaxin 500 mg IV Q8H for a complicated UTI, and on day # 4 of therapy. Objective Height (Feet): 5 Height (Inches): 11.00 Weight (Kilograms): 87.700 Lab Results (24hrs): Laboratory Tests Test 11/18/16 05:15 11/18/16 06:15 BUN/Creatinine Ratio 31.8 Blood Urea Nitrogen 38 mg/dl Creatinine 1.20 mg/dl Est CrCl 45.3 ml/min White Blood Count 23.24 K/uL Neutrophils # (Auto) 20.99 K/uL Micro Results: Item Value Date Time Urine Culture - Final Complete 11/13/162245 Urine,Catheterized Escherichia Coli SPEC #: [id number] NEVIN: 11/13/16 STATUS: COMP REQ #: [id number] RECD: 11/13/16 [facility] DR: Kosta Perez M.D. SOURCE: URINE CATH ENTR: 11/13/[address]: Pratik Potter D.O. [facility]: [facility] ORDERED: CULTURE UR CATH Procedure Result Verified Site URINE CULTURE Final 11/16/16-1159 Organism 1 ESCHERICHIA COLI COLONY COUNT >100,000 CFU/ml SENS SENSITIVITY TO FOLLOW Organism 2 ENTEROCOCCUS FAECALIS COLONY COUNT >100,000 CFU/ml SENS SENSITIVITY TO FOLLOW SENSITIVITY RESULT INDICATES AN ORGANISM WITH AN EXTENDED SPECTRUM BETA LACTAMASE.THIS IS CONSIDERED A MULTIDRUG RESISTANT ORGANISM.PHONED TO EDWIN DEWITT ON 11/16/16 AT 0716 BY Carlos Boateng. Results were verbalized back to SEBASTIEN. RESULTS WERE ALSO CALLED TO [facility] INFECTION CONTROL ANSWERING MACHINE ON 11/16/16 BY SEBASTIEN. E COLI E FAECALIS M.I.C. RX M.I.C. RX --------- ------ --------- ------ TRIMET/SULFA <=2/38 S AMPICILLIN >16 R <=2 S AMPICILLIN/SUL 16/8 I CEFAZOLIN >16 R CEFOTAXIME >32 R CEFTRIAXONE >32 R CEFEPIME >16 R CEFUROXIME >16 R IMIPENEM <=1 S GENT SYNERGY >500 R VANCOMYCIN 2 S PENICILLIN 8 S GENTAMICIN <=4 S TOBRAMYCIN <=4 S AMIKACIN <=16 S CIPROFLOXACIN >2 R LEVOFLOXACIN >4 R ERTAPENEM <=1 S DAPTOMYCIN 1 S NITROFURANTOIN 64 I <=32 S PIP/TAZO <=16 S STREP SYNERGY >1000 R CONTINUED ON NEXT PAGE RUN DATE: 11/16/16 [facility] PAGE 2 RUN TIME: 1200 Specimen Inquiry SPEC: [id number] PATIENT: SAVANNAH SAMUEL [id number] ( Continued) Procedure Result Verified Site URINE CULTURE Final (continued) ENTEROCOCCUS FAECALIS: POSITIVE COMBO 33 Streptomycin Synergy Screen R Gentamicin Synergy Screen R 1. ESCHERICHIA COLI Target Route Dose RX AB Cost M.I.C. IQ ------ ----- ------ -- ------ -------- - ------ TRIMET/SULFA S <=2/38 AMPICILLIN R >16 AMPICILLIN/SUL I 16/8 CEFAZOLIN R >16 CEFOTAXIME R >32 CEFTRIAXONE R >32 CEFEPIME R >16 CEFUROXIME R >16 IMIPENEM S <=1 GENTAMICIN S <=4 TOBRAMYCIN S <=4 AMIKACIN S <=16 CIPROFLOXACIN R >2 LEVOFLOXACIN R >4 ERTAPENEM S <=1 NITROFURANTOIN I 64 PIP/TAZO S <=16 2. ENTEROCOCCUS FAECALIS Target Route Dose RX AB Cost M.I.C. IQ ------ ----- ------ -- ------ -------- - ------ AMPICILLIN S <=2 GENT SYNERGY R >500 VANCOMYCIN S 2 PENICILLIN S 8 DAPTOMYCIN S 1 NITROFURANTOIN S <=32 STREP SYNERGY R >1000 Streptomycin Synergy Screen R Gentamicin Synergy Screen R S = SENSITIVE I = INTERMEDIATE R = RESISTANT END OF REPORT Item Value Date Time Blood Culture - Final Complete 11/13/161315 Blood Escherichia Coli PATIENT: SAVANNAH SAMUEL [facility] # : [id number] AGE/SX: 86/M ROOM: E212 REG : 11/13/[address]: Nazario Wyman M.D. : 1930 BED: 1 DIS : STATUS: ADM IN TLOC: SPEC #: [id number] NEVIN: 11/13/16 STATUS: BARBIE REQ #: [id number] RECD: 11/13/[address]: Kosta Perez M.D. SOURCE: BLOOD ENTR: 11/13/16-1254 [facility] DR: Pratik Potter D.O. [facility]: [facility] ORDERED: BLOOD CULTURE Procedure Result Verified Site BLD CULT Final 11/16/16-0750 Organism 1 ESCHERICHIA COLI SENS SENSITIVITY TO FOLLOW SENSITIVITY RESULT INDICATES AN ORGANISM WITH AN EXTENDED SPECTRUM BETA LACTAMASE.THIS IS CONSIDERED A MULTIDRUG RESISTANT ORGANISM.PHONED TO EDWIN DEWITT ON 11/16/16 AT 7284 BY Carlos Boateng. Results were verbalized back to SEBASTIEN. RESULTS WERE ALSO CALLED TO [facility] INFECTION CONTROL ANSWERING MACHINE ON 11/16/16 BY SEBASTIEN. Phoned Positive Blood Culture Gram Stain Report to [facility] on 11/14/16 At 9762 By FLORENCIO. Results were verbalized back to FLORENCIO. 1. ESCHERICHIA COLI Target Route Dose RX AB Cost M.I.C. IQ ------ ----- ------ -- ------ -------- - ------ TRIMET/SULFA S <=2/38 AMPICILLIN R >16 AMPICILLIN/SUL I 16/8 CEFAZOLIN R >16 CEFOTAXIME R >32 CEFTRIAXONE R >32 CEFEPIME R >16 CEFUROXIME R >16 IMIPENEM S <=1 GENTAMICIN S <=4 TOBRAMYCIN S <=4 AMIKACIN S <=16 CIPROFLOXACIN R >2 LEVOFLOXACIN R >4 ERTAPENEM S <=1 PIP/TAZO S <=16 S = SENSITIVE I = INTERMEDIATE R = RESISTANT END OF REPORT Assessment & Plan Assessment: * 86 y/o male with allergies to penicillin and aminoglycoside antibiotics * History of VRE and ESBL infections * Currently being treated for a complicated UTI Plan: * Discontinue Primaxin * Deescalate to Invanz for gram negative and ESBL coverage * Initiate Vancomycin therapy to cover enterococcus Invanz: * Give 1 gm IV daily * No dose adjustment for CrCl >30 ml/min * For CrCl <30 ml/min: 500 mg IV daily Vancomycin: * Give a one time loading dose of vancomycin 2000 mg IV * Continue with Vancomycin 1500 mg IV daily * Draw vancomycin trough level on 11/21 at 0930 prior to 1000 dose and re-dose as needed Pharmacy will continue to follow and will adjust dose/frequency as necessary. Thank you.
--- NOTE | 2016-11-18 15:37 | Palliative Care Consultation ---
Consultation Date of Consultation: Nov 18, 2016. Requesting Physician: Dr. Wyman Attending Physician: Dr. Wyman Reason for Consultation: Goals of care History of Present Illness This 86 year old male patient resides at the [facility] was noted to have declining in his general condition for the last few days. He has not been eating or drinking enough and this morning he did not take his oral medications and noted to have further declination of his health and he was advised to come to the hospital. He recently had a urine test that showed E. coli with ESBL strain and the caring doctor in the [facility] wanted to give IV antibiotic, but no IV medication could be given at [facility] and the patient was transferred to hospital for ongoing treatment. The patient has a history of atrial fibrillation and was noted to have rapid ventricular response en route to hospital; this issue has since been resolved and he is rate-controlled. The patient has end-stage dementia, is mostly non-verbal, and has very poor PO intake. Palliative consulted to assist with goals of care. The patient is awake but very disoriented. Only yells out, not able to participate in any conversation or answer questions. I met with the family: son , Dylan, Ursula, granddaughter Nya and her . We discussed code status and goals of care. See plan. Past Medical/Surgical History Medical History: CAD status post LAD stent in 2008 and RCA stent in 2008 chronic kidney disease hyperlipidemia gout dementia heterozygous for factor V Leiden mutation hypertension obstructive sleep apnea Surgical History: Vasectomy Social History Smoking Status: Unknown if Ever Smoked History of Alcohol Use: No Marital Status: Housing Status: [facility] Occupation Status: retired Review of Systems unable to obtain Allergies Coded Allergies: Aminoglycosides (Unverified Allergy, Mild, UNSURE, 03/04/16) Bacitracin (Unverified Allergy, Mild, UNSURE, 08/16/16) Neomycin (Unverified Allergy, Mild, UNSURE, 08/16/16) Polymyxin B (Unverified Allergy, Mild, UNSURE, 08/16/16) Molds and Smuts (Verified Allergy, Unknown, ., 08/16/16) Penicillins (Verified Allergy, Unknown, unknown, 08/16/16) Rosuvastatin (Verified Allergy, Unknown, unknown, 08/16/16) Oxybutynin (Verified Adverse Reaction, Severe, GI SYMPTOMS, 08/16/16) 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 required colonoscopic decompression of right colon 03/26/16. Medications Current Inpatient Medications Medications (Trade) Dose Ordered Sig/Dina Route Start Time Stop Time Status Last Admin Dose Admin Aspirin (Ecotrin Tab) 81 mg DAILY PO 11/14/16 09:00 12/14/16 08:59 Carvedilol (Coreg Tab) 6.25 mg BID PO 11/13/16 21:00 12/13/16 20:59 Finasteride (Proscar Tab) 5 mg DAILY PO 11/14/16 09:00 12/14/16 08:59 Folic Acid (Folvite Tab) 1 mg DAILY PO 11/14/16 09:00 12/14/16 08:59 Latanoprost (Xalatan Oph Soln) 1 drops QPM OPB 11/13/16 21:00 12/13/16 20:59 11/17/16 21:49 1 DROPS Multivitamins/ Minerals (Multivitamin W/ Minerals Tab) 1 tab DAILY PO 11/14/16 09:00 12/14/16 08:59 Nitroglycerin (Nitrostat Tab) 0.4 mg UD PRN UT 11/13/16 13:00 12/13/16 12:59 Pravastatin Sodium (Pravachol Tab) 10 mg HS PO 11/13/16 21:00 12/13/16 20:59 Senna/Docusate Sodium (Senokot S Tab) 1 tab BID PO 11/13/16 21:00 12/13/16 20:59 Tiotropium [place] (Spiriva Handihaler Inhaler) 1 puff DAILY INH 11/14/16 09:00 12/14/16 08:59 Tramadol HCl (Ultram Tab) 100 mg Q6H PRN PO 11/13/16 13:00 12/13/16 12:59 Triamcinolone Acetonide (Nasacort Allergy 24hr) 2 sprays QAM KAYLEEN 11/14/16 09:00 12/14/16 08:59 11/16/16 08:08 2 SPRAYS Miscellaneous Information (Order Awaiting Action) 1 ea QS N/A 11/13/16 16:00 12/13/16 15:59 Cyanocobalamin (Vitamin B-12 Tab) 1,000 mcg DAILY PO 11/14/16 09:00 12/14/16 08:59 Heparin Sodium (Porcine) (Heparin Sq 5000 Unit/0.5ml) 5,000 unit Q8 SQ 11/13/16 22:00 12/13/16 21:59 11/18/16 06:18 5,000 UNIT Ipratropium [place] (Atrovent 0.02% 0.5MG/2.5ML Neb) 0.5 mg Q6R INH 11/14/16 03:00 12/14/16 02:59 11/18/16 14:00 0.5 MG Levalbuterol (Xopenex 1.25MG/ 0.5ML Neb) 1.25 mg Q6R INH 11/14/16 03:00 12/14/16 02:59 11/18/16 14:00 1.25 MG Ipratropium [place] (Atrovent 0.02% 0.5MG/2.5ML Neb) 0.5 mg Q2H PRN INH 11/13/16 21:30 12/13/16 21:29 Levalbuterol (Xopenex 1.25MG/ 0.5ML Neb) 1.25 mg Q2H PRN INH 11/13/16 21:30 12/13/16 21:29 Morphine Sulfate (MoRPHine SULFATE INJ) 2 mg Q2H PRN IV 11/14/16 02:45 11/28/16 02:44 11/17/16 13:52 2 MG Morphine Sulfate (MoRPHine SULFATE INJ) 4 mg Q2H PRN IV 11/14/16 02:45 11/28/16 02:44 11/17/16 22:16 4 MG Metoprolol Tartrate 5 mg 5 mg Q4 IV. 11/15/16 08:00 12/15/16 07:59 11/18/16 12:12 5 MG Dextrose 1,000 ml @ 60 mls/hr [id number] IV 11/15/16 16:00 11/17/16 21:50 60 MLS/HR Digoxin 125 mcg/ Syringe 10 ml @ 2 mls/min DAILY@16 IV 11/18/16 09:00 12/18/16 08:59 11/18/16 09:27 2 MLS/MIN Vancomycin HCl 1500 mg/Sodium Chloride 530 ml @ 200 mls/hr Q24H IV 11/19/16 10:00 11/25/16 20:59 Ertapenem/Sodium Chloride (Invanz Iv/Nss Ad-Van 50ml) 50 ml @ 120 mls/hr Q24H IV 11/18/16 18:00 11/27/16 23:59 Vancomycin HCl (Consult) 1 ea UD PRN N/A 11/18/16 12:00 12/18/16 11:59 Physical Exam Date Time Temp Pulse Resp B/P Pulse Ox O2 Delivery O2 Flow Rate FiO2 11/18/16 14:00 102 18 100 Nasal Cannula 2.0 11/18/16 12:12 115 112/57 11/18/16 12:03 37.0 115 20 112/57 100 Nasal Cannula 3.0 11/18/16 12:00 Nasal Cannula 3.0 11/18/16 09:27 128 11/18/16 08:33 36.6 133 22 99/54 98 11/18/16 08:00 Nasal Cannula 3.0 11/18/16 08:00 135 99/54 11/18/16 04:16 36.7 123 30 91 3.0 11/18/16 04:04 142 110/60 11/18/16 04:00 Nasal Cannula 2.0 11/18/16 00:26 122 118/88 11/18/16 00:00 Nasal Cannula 2.0 11/17/16 23:59 37.0 122 20 118/89 98 2.0 11/17/16 20:51 36.4 107 16 117/85 99 Nasal Cannula 2.0 11/17/16 20:00 100 Nasal Cannula 2.0 11/17/16 19:44 96 18 100 Nasal Cannula 2.0 11/17/16 19:40 107 117/82 11/17/16 16:02 36.9 113 18 117/82 100 Nasal Cannula 2.0 11/17/16 16:00 Nasal Cannula 2.0 11/17/16 15:38 109 117/82 11/17/16 15:37 107 General Appearance: no apparent distress, + pertinent finding (chronically ill appearing) Neck: no JVD, trachea midline Respiratory: no respiratory distress, no accessory muscle use, + decreased breath sounds Cardiovascular: no edema, + irregularly irregular, + pertinent finding (weak peripheral pulses) Abdomen: normal bowel sounds, soft Musculoskeletal: pertinent finding (generalized weakness) Neurologic/Psychiatric: + disoriented, + pertinent finding (dementia, only yells out) Skin: + pallor Laboratory Results Last 24 Hours Test 11/18/16 05:15 11/18/16 06:15 Sodium Level 141 mmol/L Potassium Level 3.9 mmol/L Chloride Level 111 mmol/L Carbon Dioxide Level 19 mmol/L Anion Gap 11.0 mmol/L Blood Urea Nitrogen 38 mg/dl Creatinine 1.20 mg/dl Est Creatinine Clear Calc Drug Dose 45.3 ml/min Estimated GFR () 62.2 Estimated GFR (Non- 53.7 BUN/Creatinine Ratio 31.8 Random Glucose 124 mg/dl Calcium Level 8.7 mg/dl Phosphorus Level 2.5 mg/dl Magnesium Level 2.1 mg/dl White Blood Count 23.24 K/uL Red Blood Count 4.09 M/uL Hemoglobin 12.1 g/dL Hematocrit 34.0 % Mean Corpuscular Volume 83.1 fL Mean Corpuscular Hemoglobin 29.6 pg Mean Corpuscular Hemoglobin Concent 35.6 g/dl Platelet Count 304 K/uL Mean Platelet Volume 11.4 fL Neutrophils (%) (Auto) 90.3 % Lymphocytes (%) (Auto) 5.4 % Monocytes (%) (Auto) 1.9 % Eosinophils (%) (Auto) 0.3 % Basophils (%) (Auto) 0.0 % Neutrophils # (Auto) 20.99 K/uL Lymphocytes # (Auto) 1.26 K/uL Monocytes # (Auto) 0.44 K/uL Eosinophils # (Auto) 0.06 K/uL Basophils # (Auto) 0.01 K/uL RDW Standard Deviation 46.9 fL RDW Coefficient of Variation 15.5 % Immature Granulocyte % (Auto) 2.1 % Immature Granulocyte # (Auto) 0.48 K/uL Red Blood Cell Morphology Unremarkable Assessment & Plan Palliative Performance Scale: 20 % Problem list: End-stage dementia Sepsis 2/2 UTI UTI Afib with RVR Hypernatremia Poor PO intake CAD Acute on chronic renal failure Goals of care Palliative care plan: The goal is for comfort. Family is okay with transferring out of PCU. They would like to continue antibiotics and reevaluate in 24 hours. If the patient should decline, they would like to just make him comfortable and allow nature to take its course. He will remain a DNR/DNI. Ultimate goal would be to go back to the [facility] once medically cleared. If the patient does show any improvement, they'd be okay with continuing antibiotics, but they'd still like to be a little more aggressive with comfort measures. If the patient is able to wake up enough to eat, they'd llike comfort feeds. If he is not able to eat or drink, no feeding tube or artificial nutrition of any kind. The patient is ordered PRN morphine, I spoke with the primary RN about the goal for comfort. Could transition to PO Roxanol for discharge if necessary. Thank you kindly for this consult.
[2016-11-18] MEDS: MoRPHine SULFATE 2 MG/ML CARP IV PRN (15:59)
[2016-11-18] MEDS ORDERED: NURSING VERBAL MED ORDER ONE (18:15)
[2016-11-18] MEDS: ERTAPENEM IV 1 GM in SODIUM CHLOR 0.9% AD-VAN 50ML 50 ML IV SCH (18:19)
[2016-11-18] MEDS: PRAVASTATIN SOD 10 MG TAB PO SCH (19:28)
--- NOTE | 2016-11-18 20:37 | Progress Note ---
Medicine Progress Note Date & Time of Visit: Nov 18, 2016 at 20:27. Subjective Pt was seen and examined Only making moaning sound Discussed the prognosis with family yesterday family had a meeting with palliative care tea today Objective Last 8 Hrs Date Time Temp Pulse Resp B/P Pulse Ox O2 Delivery O2 Flow Rate FiO2 11/18/16 19:54 36.3 111 18 138/64 100 Nasal Cannula 3.0 11/18/16 19:54 96 138/64 11/18/16 19:30 Nasal Cannula 3.0 11/18/16 19:16 99 20 100 Nasal Cannula 2.0 11/18/16 16:02 111 129/89 11/18/16 16:00 Nasal Cannula 3.0 11/18/16 15:56 36.3 111 18 129/89 99 Nasal Cannula 3.0 11/18/16 14:00 102 18 100 Nasal Cannula 2.0 Physical Exam: General- no acute distress Head- atraumatic Eyes- PERRL, anicteric ENT- oropharynx clear Neck- supple, no JVD Lungs- Coarse BS Heart- irregular rhythm Abdomen- normal bowel sounds, soft Extremities- no calf tenderness Neuro- awake, move extremities Skin- warm & dry Laboratory Results: Last 24 Hours Test 11/18/16 05:15 11/18/16 06:15 Sodium Level 141 mmol/L Potassium Level 3.9 mmol/L Chloride Level 111 mmol/L Carbon Dioxide Level 19 mmol/L Anion Gap 11.0 mmol/L Blood Urea Nitrogen 38 mg/dl Creatinine 1.20 mg/dl Est Creatinine Clear Calc Drug Dose 45.3 ml/min Estimated GFR () 62.2 Estimated GFR (Non- 53.7 BUN/Creatinine Ratio 31.8 Random Glucose 124 mg/dl Calcium Level 8.7 mg/dl Phosphorus Level 2.5 mg/dl Magnesium Level 2.1 mg/dl White Blood Count 23.24 K/uL Red Blood Count 4.09 M/uL Hemoglobin 12.1 g/dL Hematocrit 34.0 % Mean Corpuscular Volume 83.1 fL Mean Corpuscular Hemoglobin 29.6 pg Mean Corpuscular Hemoglobin Concent 35.6 g/dl Platelet Count 304 K/uL Mean Platelet Volume 11.4 fL Neutrophils (%) (Auto) 90.3 % Lymphocytes (%) (Auto) 5.4 % Monocytes (%) (Auto) 1.9 % Eosinophils (%) (Auto) 0.3 % Basophils (%) (Auto) 0.0 % Neutrophils # (Auto) 20.99 K/uL Lymphocytes # (Auto) 1.26 K/uL Monocytes # (Auto) 0.44 K/uL Eosinophils # (Auto) 0.06 K/uL Basophils # (Auto) 0.01 K/uL RDW Standard Deviation 46.9 fL RDW Coefficient of Variation 15.5 % Immature Granulocyte % (Auto) 2.1 % Immature Granulocyte # (Auto) 0.48 K/uL Red Blood Cell Morphology Unremarkable Assessment & Plan Sepsis secondary to UTI due to Bear Catheter and Gm negative Bacteremia Met the criteria of Sepsis on admission Lactic acid-normal Has had Hypotension on admission-Improved with IVF UTI secondary to Extended Spectrum Beta-Lactamase bacteria, Sensitive to ertapenem. IVF and IV Ertapenem Blood Culture-Gm neg Bacilli in one bottle Urine Culture on 11/11/16 -ESBL ,Repeat Culture-E Coli and Enterococcus Blood cx ESCHERICHIA COLI Target Route Dose RX AB Cost M.I.C. IQ ------ ----- ------ -- ------ -------- - ------ TRIMET/SULFA S <=2/38 AMPICILLIN R >16 AMPICILLIN/SUL I 16/8 CEFAZOLIN R >16 CEFOTAXIME R >32 CEFTRIAXONE R >32 CEFEPIME R >16 CEFUROXIME R >16 IMIPENEM S <=1 GENTAMICIN S <=4 TOBRAMYCIN S <=4 AMIKACIN S <=16 CIPROFLOXACIN R >2 LEVOFLOXACIN R >4 ERTAPENEM S <=1 PIP/TAZO S <=16 Urine Cx E COLI E FAECALIS M.I.C. RX M.I.C. RX --------- ------ --------- ------ TRIMET/SULFA <=2/38 S AMPICILLIN >16 R <=2 S AMPICILLIN/SUL 16/8 I CEFAZOLIN >16 R CEFOTAXIME >32 R CEFTRIAXONE >32 R CEFEPIME >16 R CEFUROXIME >16 R IMIPENEM <=1 S GENT SYNERGY >500 R VANCOMYCIN 2 S PENICILLIN 8 S GENTAMICIN <=4 S TOBRAMYCIN <=4 S AMIKACIN <=16 S CIPROFLOXACIN >2 R LEVOFLOXACIN >4 R ERTAPENEM <=1 S DAPTOMYCIN 1 S NITROFURANTOIN 64 I <=32 S PIP/TAZO <=16 S STREP SYNERGY >1000 R ID was consulted Recommendation: Abx changed to ertapenem and IV vanco was added WBC elevated will continue monitor pt Atrial Fibrillation with RVR AF likely secondary to Sepsis Has been on IV BB Rate is not controlled will increase digoxin to 125mcg daily if HR not controlled BP was in the low side if BP improved will continue with the Lopressor IV No anticoagulation If pt status does not change to comfort measure in am, will consult cardiology Hypernatremia Likely secondary to Dehydration Continue IVF and recheck continue monitor BMP Coronary artery disease with a history of cardiac stent, Asymptomatic Continue with aspirin and resume his Coreg for low blood pressure. Poor oral intake Failed swallow eval no tube feeding for now as per family palliative care was consulted and met with family Family would give 24hrs after changing made in the ABx before making a decision to comfort measure Hypertension. His blood pressure seems to be low at this time, likely secondary to sepsis. BP stable Acute Renal Failure on Chronic kidney disease. Creatine is 1.2 Continue monitor BMP Improved FACUNDO On CPAP Can use his own CPAP machine GI Px on PPI DVT px on SQ heparin. Code Status DNR Prognosis poor Current Inpatient Medications: Current Inpatient Medications Medications (Trade) Dose Ordered Sig/Dina Route Start Time Stop Time Status Last Admin Dose Admin Aspirin (Ecotrin Tab) 81 mg DAILY PO 11/14/16 09:00 12/14/16 08:59 Carvedilol (Coreg Tab) 6.25 mg BID PO 11/13/16 21:00 12/13/16 20:59 Finasteride (Proscar Tab) 5 mg DAILY PO 11/14/16 09:00 12/14/16 08:59 Folic Acid (Folvite Tab) 1 mg DAILY PO 11/14/16 09:00 12/14/16 08:59 Latanoprost (Xalatan Oph Soln) 1 drops QPM OPB 11/13/16 21:00 12/13/16 20:59 11/17/16 21:49 1 DROPS Multivitamins/ Minerals (Multivitamin W/ Minerals Tab) 1 tab DAILY PO 11/14/16 09:00 12/14/16 08:59 Nitroglycerin (Nitrostat Tab) 0.4 mg UD PRN UT 11/13/16 13:00 12/13/16 12:59 Pravastatin Sodium (Pravachol Tab) 10 mg HS PO 11/13/16 21:00 12/13/16 20:59 Senna/Docusate Sodium (Senokot S Tab) 1 tab BID PO 11/13/16 21:00 12/13/16 20:59 Tiotropium Ira (Spiriva Handihaler Inhaler) 1 puff DAILY INH 11/14/16 09:00 12/14/16 08:59 Tramadol HCl (Ultram Tab) 100 mg Q6H PRN PO 11/13/16 13:00 12/13/16 12:59 Triamcinolone Acetonide (Nasacort Allergy 24hr) 2 sprays QAM KAYLEEN 11/14/16 09:00 12/14/16 08:59 11/16/16 08:08 2 SPRAYS Miscellaneous Information (Order Awaiting Action) 1 ea QS N/A 11/13/16 16:00 12/13/16 15:59 Cyanocobalamin (Vitamin B-12 Tab) 1,000 mcg DAILY PO 11/14/16 09:00 12/14/16 08:59 Heparin Sodium (Porcine) (Heparin Sq 5000 Unit/0.5ml) 5,000 unit Q8 SQ 11/13/16 22:00 12/13/16 21:59 11/18/16 06:18 5,000 UNIT Ipratropium Ira (Atrovent 0.02% 0.5MG/2.5ML Neb) 0.5 mg Q6R INH 11/14/16 03:00 12/14/16 02:59 11/18/16 19:15 0.5 MG Levalbuterol (Xopenex 1.25MG/ 0.5ML Neb) 1.25 mg Q6R INH 11/14/16 03:00 12/14/16 02:59 11/18/16 19:15 1.25 MG Ipratropium Ira (Atrovent 0.02% 0.5MG/2.5ML Neb) 0.5 mg Q2H PRN INH 11/13/16 21:30 12/13/16 21:29 Levalbuterol (Xopenex 1.25MG/ 0.5ML Neb) 1.25 mg Q2H PRN INH 11/13/16 21:30 12/13/16 21:29 Morphine Sulfate (MoRPHine SULFATE INJ) 2 mg Q2H PRN IV 11/14/16 02:45 11/28/16 02:44 11/18/16 15:59 2 MG Morphine Sulfate (MoRPHine SULFATE INJ) 4 mg Q2H PRN IV 11/14/16 02:45 11/28/16 02:44 11/17/16 22:16 4 MG Metoprolol Tartrate 5 mg 5 mg Q4 IV. 11/15/16 08:00 12/15/16 07:59 11/18/16 19:54 5 MG Digoxin 125 mcg/ Syringe 10 ml @ 2 mls/min DAILY@16 IV 11/18/16 09:00 12/18/16 08:59 11/18/16 09:27 2 MLS/MIN Vancomycin HCl 1500 mg/Sodium Chloride 530 ml @ 200 mls/hr Q24H IV 11/19/16 10:00 11/25/16 20:59 Ertapenem/Sodium Chloride (Invanz Iv/Nss Ad-Van 50ml) 50 ml @ 120 mls/hr Q24H IV 11/18/16 18:00 11/27/16 23:59 11/18/16 18:19 120 MLS/HR Vancomycin HCl (Consult) 1 ea UD PRN N/A 11/18/16 12:00 12/18/16 11:59
[2016-11-18] MEDS: LATANOPROST 0.005% OP SOLN 2.5 ML BTL OPB SCH (21:18)
[2016-11-19] VITALS (16 sets, daily range): BP systolic 112–149; BP diastolic 65–84; PULSE 81–111; TEMP 36.3–37.3; O2SAT 90–100
[2016-11-19] MEDS: METOPROLOL TARTRATE 1 MG/ML VIAL IV. SCH ×6 (00:22→22:18)
[2016-11-19] MEDS: LEVALBUTEROL 1.25MG/0.5ML NEB INH SCH ×3 (01:53→19:48)
[2016-11-19] MEDS: IPRATROPIUM BROMIDE NEB SOLN 0.02% 2.5 ML VIAL INH SCH ×3 (01:53→19:48)
[2016-11-19] MEDS: HEPARIN SOD 5000 UNIT/0.5 ML CARP SQ SCH ×3 (06:15→22:00)
[2016-11-19 06:57] LABS: BASO ABS # 0.01 K/uL (0-0.2); COMPLETE YES; EOS % 0.2 %; HEMATOCRIT 32.8 % (42-52); IG% 2.2 %; LYMPH % 4.6 %; LYMPH ABS # 0.93 K/uL (1.2-3.4); MEAN CORPUSCULAR HEMOGLOBIN 28.9 pg (25-34); MEAN CORPUSCULAR HGB CONC 34.8 g/dl (32-36); MEAN PLATELET VOLUME 11.5 fL (7.4-10.4); MONO % 5.8 %; NEUT % 87.2 %; PLATELET COUNT 329 K/uL (130-400); RED BLOOD COUNT 3.95 M/uL (4.7-6.1); WHITE BLOOD COUNT 20.22 K/uL (4.8-10.8)
[2016-11-19 07:30] LABS: BUN/CREATININE RATIO 36.5 (10-20); CALCIUM 8.7 mg/dl (8.5-10.1); CREATININE 1.3 mg/dl (0.60-1.40); POTASSIUM 3.8 mmol/L (3.5-5.1)
[2016-11-19] MEDS: CARVEDILOL 6.25 MG TAB PO SCH ×2 (07:55→21:00)
[2016-11-19] MEDS: ASPIRIN 81 MG ECTAB PO SCH (07:55)
[2016-11-19] MEDS: CYANOCOBALAMIN 500 MCG TAB (VIT B-12) PO SCH (07:56)
[2016-11-19] MEDS: CEROVITE ADV FORMULA TAB PO SCH (07:56)
[2016-11-19] MEDS: DOCUSATE SODIUM/SENNA 50/8.6MG TAB PO SCH ×2 (07:56→21:00)
[2016-11-19] MEDS: FINASTERIDE 5 MG TAB PO SCH (07:56)
[2016-11-19] MEDS: TIOTROPIUM BROMIDE 5 PUFF/90 MCG INH INH SCH (09:00)
[2016-11-19] MEDS: MoRPHine SULFATE 2 MG/ML CARP IV PRN ×2 (10:00→12:00)
--- NOTE | 2016-11-19 10:42 | Infectious Disease Progress Nt ---
Progress Note Date of Service Nov 19, 2016. Subjective Pt evaluation today including: physical exam, chart review, lab review, review of studies, review of inpatient medication list WBC count this morning 20.22. Creatinine is 1.30. Repeat blood cultures are pending. Patient is currently on IV Vancomycin and Ertapenem. He continues to be in a state in which he only moans and makes limited eye contact, therefore unable to obtain ROS. All Other Systems: Reviewed and Negative Medications Current Inpatient Medications Medications (Trade) Dose Ordered Sig/Dina Route Start Time Stop Time Status Last Admin Dose Admin Aspirin (Ecotrin Tab) 81 mg DAILY PO 11/14/16 09:00 12/14/16 08:59 Carvedilol (Coreg Tab) 6.25 mg BID PO 11/13/16 21:00 12/13/16 20:59 Finasteride (Proscar Tab) 5 mg DAILY PO 11/14/16 09:00 12/14/16 08:59 Folic Acid (Folvite Tab) 1 mg DAILY PO 11/14/16 09:00 12/14/16 08:59 Latanoprost (Xalatan Oph Soln) 1 drops QPM OPB 11/13/16 21:00 12/13/16 20:59 11/18/16 21:18 1 DROPS Multivitamins/ Minerals (Multivitamin W/ Minerals Tab) 1 tab DAILY PO 11/14/16 09:00 12/14/16 08:59 Nitroglycerin (Nitrostat Tab) 0.4 mg UD PRN [place] 11/13/16 13:00 12/13/16 12:59 Pravastatin Sodium (Pravachol Tab) 10 mg HS PO 11/13/16 21:00 12/13/16 20:59 Senna/Docusate Sodium (Senokot S Tab) 1 tab BID PO 11/13/16 21:00 12/13/16 20:59 Tiotropium [place] (Spiriva Handihaler Inhaler) 1 puff DAILY INH 11/14/16 09:00 12/14/16 08:59 Tramadol HCl (Ultram Tab) 100 mg Q6H PRN PO 11/13/16 13:00 12/13/16 12:59 Triamcinolone Acetonide (Nasacort Allergy 24hr) 2 sprays QAM KAYLEEN 11/14/16 09:00 12/14/16 08:59 11/16/16 08:08 2 SPRAYS Miscellaneous Information (Order Awaiting Action) 1 ea QS N/A 11/13/16 16:00 12/13/16 15:59 Cyanocobalamin (Vitamin B-12 Tab) 1,000 mcg DAILY PO 11/14/16 09:00 12/14/16 08:59 Heparin Sodium (Porcine) (Heparin Sq 5000 Unit/0.5ml) 5,000 unit Q8 SQ 11/13/16 22:00 12/13/16 21:59 11/19/16 06:15 5,000 UNIT Ipratropium [place] (Atrovent 0.02% 0.5MG/2.5ML Neb) 0.5 mg Q6R INH 11/14/16 03:00 12/14/16 02:59 11/19/16 07:33 0.5 MG Levalbuterol (Xopenex 1.25MG/ 0.5ML Neb) 1.25 mg Q6R INH 11/14/16 03:00 12/14/16 02:59 11/19/16 07:33 1.25 MG Ipratropium [place] (Atrovent 0.02% 0.5MG/2.5ML Neb) 0.5 mg Q2H PRN INH 11/13/16 21:30 12/13/16 21:29 Levalbuterol (Xopenex 1.25MG/ 0.5ML Neb) 1.25 mg Q2H PRN INH 11/13/16 21:30 12/13/16 21:29 Morphine Sulfate (MoRPHine SULFATE INJ) 2 mg Q2H PRN IV 11/14/16 02:45 11/28/16 02:44 11/19/16 10:00 2 MG Morphine Sulfate (MoRPHine SULFATE INJ) 4 mg Q2H PRN IV 11/14/16 02:45 11/28/16 02:44 11/17/16 22:16 4 MG Metoprolol Tartrate 5 mg 5 mg Q4 IV. 11/15/16 08:00 12/15/16 07:59 11/19/16 08:01 5 MG Digoxin 125 mcg/ Syringe 10 ml @ 2 mls/min DAILY@16 IV 11/18/16 09:00 12/18/16 08:59 11/18/16 09:27 2 MLS/MIN Vancomycin HCl 1500 mg/Sodium Chloride 530 ml @ 200 mls/hr Q24H IV 11/19/16 10:00 11/25/16 20:59 Ertapenem/Sodium Chloride (Invanz Iv/Nss Ad-Van 50ml) 50 ml @ 120 mls/hr Q24H IV 11/18/16 18:00 11/27/16 23:59 11/18/16 18:19 120 MLS/HR Vancomycin HCl (Consult) 1 ea UD PRN N/A 11/18/16 12:00 12/18/16 11:59 Objective Vital Signs Date Time Temp Pulse Resp B/P Pulse Ox O2 Delivery O2 Flow Rate FiO2 11/19/16 08:10 37.0 98 24 100 11/19/16 08:01 95 154/65 11/19/16 08:00 100 Nasal Cannula 3.0 11/19/16 07:33 96 18 100 Nasal Cannula 2.0 11/19/16 04:02 36.3 88 18 120/81 97 Nasal Cannula 2.0 11/19/16 04:00 97 Nasal Cannula 3.0 11/19/16 03:53 90 11/19/16 01:53 93 20 100 Nasal Cannula 3.0 11/19/16 00:22 95 123/64 11/19/16 00:00 98 Nasal Cannula 3.0 11/18/16 23:59 36.8 81 18 123/64 95 Nasal Cannula 3.0 11/18/16 19:54 36.3 111 18 138/64 100 Nasal Cannula 3.0 11/18/16 19:54 96 138/64 11/18/16 19:30 Nasal Cannula 3.0 11/18/16 19:16 99 20 100 Nasal Cannula 3.0 11/18/16 16:02 111 129/89 11/18/16 16:00 Nasal Cannula 3.0 11/18/16 15:56 36.3 111 18 129/89 99 Nasal Cannula 3.0 11/18/16 14:00 102 18 100 Nasal Cannula 2.0 11/18/16 12:12 115 112/57 11/18/16 12:03 37.0 115 20 112/57 100 Nasal Cannula 3.0 11/18/16 12:00 Nasal Cannula 3.0 Physical Exam General Appearance: WD/WN, + pertinent finding (lethargic, moaning, no coversation) Eyes: normal inspection Neck: supple, trachea midline Respiratory/Chest: chest non-tender, no respiratory distress, no accessory muscle use, + decreased breath sounds Cardiovascular: + tachycardia (101 on monitor) Abdomen: soft, + abnormal bowel sounds (hypoactive) Laboratory Results Item Value Date Time Blood Culture [place] Batch 11/19/16 1024 Blood Pending Blood Culture [place] Batch 11/19/16 1024 Blood Pending Urine Culture - Final Complete 11/13/16 2246 Urine,Catheterized Escherichia Coli Blood Culture - Final Complete 11/13/16 1316 Blood NO GROWTH Blood Culture - Final Complete 11/13/16 1316 Blood Escherichia Coli Last 24 Hours Test 11/19/16 06:08 White Blood Count 20.22 K/uL Red Blood Count 3.95 M/uL Hemoglobin 11.4 g/dL Hematocrit 32.8 % Mean Corpuscular Volume 83.0 fL Mean Corpuscular Hemoglobin 28.9 pg Mean Corpuscular Hemoglobin Concent 34.8 g/dl Platelet Count 329 K/uL Mean Platelet Volume 11.5 fL Neutrophils (%) (Auto) 87.2 % Lymphocytes (%) (Auto) 4.6 % Monocytes (%) (Auto) 5.8 % Eosinophils (%) (Auto) 0.2 % Basophils (%) (Auto) 0.0 % Neutrophils # (Auto) 17.62 K/uL Lymphocytes # (Auto) 0.93 K/uL Monocytes # (Auto) 1.17 K/uL Eosinophils # (Auto) 0.04 K/uL Basophils # (Auto) 0.01 K/uL RDW Standard Deviation 48.5 fL RDW Coefficient of Variation 15.9 % Immature Granulocyte % (Auto) 2.2 % Immature Granulocyte # (Auto) 0.45 K/uL Sodium Level 143 mmol/L Potassium Level 3.8 mmol/L Chloride Level 111 mmol/L Carbon Dioxide Level 21 mmol/L Anion Gap 11.0 mmol/L Blood Urea Nitrogen 47 mg/dl Creatinine 1.30 mg/dl Est Creatinine Clear Calc Drug Dose 41.8 ml/min Estimated GFR () 56.5 Estimated GFR (Non- 48.7 BUN/Creatinine Ratio 36.5 Random Glucose 97 mg/dl Calcium Level 8.7 mg/dl Assessment and Plan Patient with E. Coli bacteremia, E. Coli and Enterococcal UTI, and possible aspiration event. He does have history of positive MRSA nasal swab in August 2016. He is currently on IV Ertapenem and Vancomycin as well for now to cover MRSA and also Enterococcus in Urine with PCN allergy. Repeat blood cultures pending. Patient will need at least 2 weeks of antibiotic therapy for E. Coli bacteremia. With ANALIA on admission, not sure PO Bactrim is the best option for transition after improvement. May consider continued therapy with IV abx pending further improvement. We will follow. Plan: 1. Continue IV Vancomycin and Ertapenem PROVIDER ADDENDUM: Patient reviewed with Ms. Wilks. Agree with above assessment.
[2016-11-19] MEDS: VANCOMYCIN INJ 1,500 MG in SODIUM CHLORIDE 0.9% 500ML 500 ML IV SCH (10:43)
[2016-11-19] MEDS: TRIAMCINOLONE ACET NASAL SPRAY 10.8ML BTL NAE SCH (10:43)
--- NOTE | 2016-11-19 11:15 | Palliative Care Progress Note ---
Palliative Care Progress Note Date of Service Nov 19, 2016. Subjective Pt evaluation today including: conversation w/ patient, conversation w/ family , physical exam, chart review, conversation w/ is consultant Pain: yells out when touched, seems to be in pain when repositioned in bed PO Intake: none Voiding: gann catheter in place No PO intake No improvement today Per nursing staff, is yelling out frequently, seems to be in pain Dependent, peripheral edema increasing Review of Systems unable to obtain Objective Vital Signs Date Time Temp Pulse Resp B/P Pulse Ox O2 Delivery O2 Flow Rate FiO2 11/19/16 08:10 37.0 98 24 100 11/19/16 08:01 95 154/65 11/19/16 08:00 100 Nasal Cannula 3.0 11/19/16 07:33 96 18 100 Nasal Cannula 2.0 11/19/16 04:02 36.3 88 18 120/81 97 Nasal Cannula 2.0 11/19/16 04:00 97 Nasal Cannula 3.0 11/19/16 03:53 90 11/19/16 01:53 93 20 100 Nasal Cannula 3.0 11/19/16 00:22 95 123/64 11/19/16 00:00 98 Nasal Cannula 3.0 11/18/16 23:59 36.8 81 18 123/64 95 Nasal Cannula 3.0 11/18/16 19:54 36.3 111 18 138/64 100 Nasal Cannula 3.0 11/18/16 19:54 96 138/64 11/18/16 19:30 Nasal Cannula 3.0 11/18/16 19:16 99 20 100 Nasal Cannula 3.0 11/18/16 16:02 111 129/89 11/18/16 16:00 Nasal Cannula 3.0 11/18/16 15:56 36.3 111 18 129/89 99 Nasal Cannula 3.0 11/18/16 14:00 102 18 100 Nasal Cannula 2.0 11/18/16 12:12 115 112/57 11/18/16 12:03 37.0 115 20 112/57 100 Nasal Cannula 3.0 11/18/16 12:00 Nasal Cannula 3.0 Physical Exam General Appearance: + mild distress (restless and yelling out when touched) Neck: no JVD, trachea midline Respiratory/Chest: no respiratory distress, no accessory muscle use, + decreased breath sounds Cardiovascular: + irregularly irregular, + pertinent finding (+1-2 pitting edema of hands, trace in feet/ankles) Abdomen: normal bowel sounds, soft Extremities: + pertinent finding (generalized weakness) Neurologic/Psychiatric: + disoriented Laboratory Results Last 24 Hours Test 11/19/16 06:08 White Blood Count 20.22 K/uL Red Blood Count 3.95 M/uL Hemoglobin 11.4 g/dL Hematocrit 32.8 % Mean Corpuscular Volume 83.0 fL Mean Corpuscular Hemoglobin 28.9 pg Mean Corpuscular Hemoglobin Concent 34.8 g/dl Platelet Count 329 K/uL Mean Platelet Volume 11.5 fL Neutrophils (%) (Auto) 87.2 % Lymphocytes (%) (Auto) 4.6 % Monocytes (%) (Auto) 5.8 % Eosinophils (%) (Auto) 0.2 % Basophils (%) (Auto) 0.0 % Neutrophils # (Auto) 17.62 K/uL Lymphocytes # (Auto) 0.93 K/uL Monocytes # (Auto) 1.17 K/uL Eosinophils # (Auto) 0.04 K/uL Basophils # (Auto) 0.01 K/uL RDW Standard Deviation 48.5 fL RDW Coefficient of Variation 15.9 % Immature Granulocyte % (Auto) 2.2 % Immature Granulocyte # (Auto) 0.45 K/uL Sodium Level 143 mmol/L Potassium Level 3.8 mmol/L Chloride Level 111 mmol/L Carbon Dioxide Level 21 mmol/L Anion Gap 11.0 mmol/L Blood Urea Nitrogen 47 mg/dl Creatinine 1.30 mg/dl Est Creatinine Clear Calc Drug Dose 41.8 ml/min Estimated GFR () 56.5 Estimated GFR (Non- 48.7 BUN/Creatinine Ratio 36.5 Random Glucose 97 mg/dl Calcium Level 8.7 mg/dl Assessment and Plan Problem list: End-stage dementia Sepsis 2/2 UTI UTI Afib with RVR Hypernatremia Poor PO intake CAD Acute on chronic renal failure Goals of care Palliative care plan: Transfer patient to [facility] Once family arrives, will make decision on comfort measures vs. current treatment. Asked nurse to give dose of morphine, she stated the patient tolerated well. Spoke with patient's son on the phone, he is going to visit the [facility] again today to see what kind of end-of-life options they offer. I will get him in touch with the patient case manager. Dr. Wyman updated. Palliative Performance Scale: 10 % Continued [facility] stay due to: multiple IV medications needed, home environment unsafe for pt Discharge planning: uncertain
[2016-11-19] MEDS: MoRPHine SULFATE 4 MG/ML 1 ML CARP\\VIAL IV PRN ×2 (13:29→18:07)
--- NOTE | 2016-11-19 16:09 | Progress Note ---
Medicine Progress Note Date & Time of Visit: Nov 19, 2016 at 15:55. Subjective Pt was seen and examined Pt still doing the moaning sound he has not eat eating failed swallow family refused tube feeding I had a meeting to the family today (5 people) family wants him to be comfortable, but they want the abx to continue, as well as to continue with suctioning and pain med They will make a final decision tomorrow for comfort measure Objective Last 8 Hrs Date Time Temp Pulse Resp B/P Pulse Ox O2 Delivery O2 Flow Rate FiO2 11/19/16 13:30 Nasal Cannula 3.0 11/19/16 13:25 37.3 86 20 141/78 100 11/19/16 12:41 37.1 109 20 100 3.0 11/19/16 12:03 37.1 109 20 112/65 100 11/19/16 12:00 100 Nasal Cannula 3.0 11/19/16 11:59 105 112/65 11/19/16 08:10 37.0 98 24 100 11/19/16 08:01 95 154/65 11/19/16 08:00 100 Nasal Cannula 3.0 Physical Exam: General- no acute distress Head- atraumatic Eyes- PERRL, anicteric ENT- oropharynx clear Neck- supple, no JVD Lungs- Coarse BS Heart- irregular rhythm Abdomen- normal bowel sounds, soft Extremities- no calf tenderness Neuro- awake, move extremities Skin- warm & dry Laboratory Results: Last 24 Hours Test 11/19/16 06:08 11/19/16 11:43 White Blood Count 20.22 K/uL Red Blood Count 3.95 M/uL Hemoglobin 11.4 g/dL Hematocrit 32.8 % Mean Corpuscular Volume 83.0 fL Mean Corpuscular Hemoglobin 28.9 pg Mean Corpuscular Hemoglobin Concent 34.8 g/dl Platelet Count 329 K/uL Mean Platelet Volume 11.5 fL Neutrophils (%) (Auto) 87.2 % Lymphocytes (%) (Auto) 4.6 % Monocytes (%) (Auto) 5.8 % Eosinophils (%) (Auto) 0.2 % Basophils (%) (Auto) 0.0 % Neutrophils # (Auto) 17.62 K/uL Lymphocytes # (Auto) 0.93 K/uL Monocytes # (Auto) 1.17 K/uL Eosinophils # (Auto) 0.04 K/uL Basophils # (Auto) 0.01 K/uL RDW Standard Deviation 48.5 fL RDW Coefficient of Variation 15.9 % Immature Granulocyte % (Auto) 2.2 % Immature Granulocyte # (Auto) 0.45 K/uL Sodium Level 143 mmol/L Potassium Level 3.8 mmol/L Chloride Level 111 mmol/L Carbon Dioxide Level 21 mmol/L Anion Gap 11.0 mmol/L Blood Urea Nitrogen 47 mg/dl Creatinine 1.30 mg/dl Est Creatinine Clear Calc Drug Dose 41.8 ml/min Estimated GFR () 56.5 Estimated GFR (Non- 48.7 BUN/Creatinine Ratio 36.5 Random Glucose 97 mg/dl Calcium Level 8.7 mg/dl Bedside Glucose 91 mg/dl Date/Time Source Procedure Growth Status 11/19/16 10:55 Blood Blood Culture Pending Received 11/19/16 10:48 Blood Blood Culture Pending Received Assessment & Plan Sepsis secondary to UTI due to Bear Catheter and Gm negative Bacteremia Met the criteria of Sepsis on admission Lactic acid-normal Has had Hypotension on admission-Improved with IVF UTI secondary to Extended Spectrum Beta-Lactamase bacteria, Blood Culture-Gm neg Bacilli in one bottle Urine Culture on 11/11/16 -ESBL ,Repeat Culture-E Coli and Enterococcus Blood cx ESCHERICHIA COLI Target Route Dose RX AB Cost M.I.C. IQ ------ ----- ------ -- ------ -------- - ------ TRIMET/SULFA S <= AMPICILLIN R >16 AMPICILLIN/SUL I 16/8 CEFAZOLIN R >16 CEFOTAXIME R >32 CEFTRIAXONE R >32 CEFEPIME R >16 CEFUROXIME R >16 IMIPENEM S <=1 GENTAMICIN S <=4 TOBRAMYCIN S <=4 AMIKACIN S <=16 CIPROFLOXACIN R >2 LEVOFLOXACIN R >4 ERTAPENEM S <=1 PIP/TAZO S <=16 Urine Cx E COLI E FAECALIS M.I.C. RX M.I.C. RX --------- ------ --------- ------ TRIMET/SULFA <=2/38 S AMPICILLIN >16 R <=2 S AMPICILLIN/SUL 16/8 I CEFAZOLIN >16 R CEFOTAXIME >32 R CEFTRIAXONE >32 R CEFEPIME >16 R CEFUROXIME >16 R IMIPENEM <=1 S GENT SYNERGY >500 R VANCOMYCIN 2 S PENICILLIN 8 S GENTAMICIN <=4 S TOBRAMYCIN <=4 S AMIKACIN <=16 S CIPROFLOXACIN >2 R LEVOFLOXACIN >4 R ERTAPENEM <=1 S DAPTOMYCIN 1 S NITROFURANTOIN 64 I <=32 S PIP/TAZO <=16 S STREP SYNERGY >1000 R ID was consulted Recommendation: Abx changed to ertapenem and IV vanco was added WBC slightly trending down repeat cbc tomorrow Continue IV abx for now family will decide tomorrow if they need abx to stop or to continue Atrial Fibrillation with RVR AF likely secondary to Sepsis Has been on IV BB Rate is not controlled will increase digoxin to 125mcg daily if HR not controlled BP was in the low side if BP improved will continue with the Lopressor IV No anticoagulation Family wants him to be comfortable for now They don't want any cardiology consult for now and no cardiac intervention Ok with family to transfer to medical Hypernatremia Likely secondary to Dehydration Continue IVF and recheck continue monitor BMP Coronary artery disease with a history of cardiac stent, Asymptomatic Continue with aspirin and resume his Coreg for low blood pressure. Poor oral intake Failed swallow eval no tube feeding for now as per family palliative care was consulted and met with family Family would give 24hrs after changing made in the ABx before making a decision to comfort measure Hypertension. His blood pressure seems to be low at this time, likely secondary to sepsis. BP stable Acute Renal Failure on Chronic kidney disease. Creatine is 1.2 Continue monitor BMP Improved FACUNDO On CPAP Can use his own CPAP machine GI Px on PPI DVT px on SQ heparin. Code Status DNR Prognosis poor family will decide tomorrow about to change code status to comfort measure Continued [facility] stay due to: multiple IV medications needed, home environment unsafe for pt Discharge planning: uncertain Consultants: Palliative care ID Speech PT/OT Current Inpatient Medications: Current Inpatient Medications Medications (Trade) Dose Ordered Sig/Dina Route Start Time Stop Time Status Last Admin Dose Admin Aspirin (Ecotrin Tab) 81 mg DAILY PO 11/14/16 09:00 12/14/16 08:59 Carvedilol (Coreg Tab) 6.25 mg BID PO 11/13/16 21:00 12/13/16 20:59 Finasteride (Proscar Tab) 5 mg DAILY PO 11/14/16 09:00 12/14/16 08:59 Folic Acid (Folvite Tab) 1 mg DAILY PO 11/14/16 09:00 12/14/16 08:59 Latanoprost (Xalatan Oph Soln) 1 drops QPM OPB 11/13/16 21:00 12/13/16 20:59 11/18/16 21:18 1 DROPS Multivitamins/ Minerals (Multivitamin W/ Minerals Tab) 1 tab DAILY PO 11/14/16 09:00 12/14/16 08:59 Nitroglycerin (Nitrostat Tab) 0.4 mg UD PRN [place] 11/13/16 13:00 12/13/16 12:59 Pravastatin Sodium (Pravachol Tab) 10 mg HS PO 11/13/16 21:00 12/13/16 20:59 Senna/Docusate Sodium (Senokot S Tab) 1 tab BID PO 11/13/16 21:00 12/13/16 20:59 Tiotropium [place] (Spiriva Handihaler Inhaler) 1 puff DAILY INH 11/14/16 09:00 12/14/16 08:59 Tramadol HCl (Ultram Tab) 100 mg Q6H PRN PO 11/13/16 13:00 12/13/16 12:59 Triamcinolone Acetonide (Nasacort Allergy 24hr) 2 sprays QAM KAYLEEN 11/14/16 09:00 12/14/16 08:59 11/19/16 10:43 2 SPRAYS Miscellaneous Information (Order Awaiting Action) 1 ea QS N/A 11/13/16 16:00 12/13/16 15:59 Cyanocobalamin (Vitamin B-12 Tab) 1,000 mcg DAILY PO 11/14/16 09:00 12/14/16 08:59 Heparin Sodium (Porcine) (Heparin Sq 5000 Unit/0.5ml) 5,000 unit Q8 SQ 11/13/16 22:00 12/13/16 21:59 11/19/16 13:30 5,000 UNIT Ipratropium [place] (Atrovent 0.02% 0.5MG/2.5ML Neb) 0.5 mg Q6R INH 11/14/16 03:00 12/14/16 02:59 11/19/16 07:33 0.5 MG Levalbuterol (Xopenex 1.25MG/ 0.5ML Neb) 1.25 mg Q6R INH 11/14/16 03:00 12/14/16 02:59 11/19/16 07:33 1.25 MG Ipratropium [place] (Atrovent 0.02% 0.5MG/2.5ML Neb) 0.5 mg Q2H PRN INH 11/13/16 21:30 12/13/16 21:29 Levalbuterol (Xopenex 1.25MG/ 0.5ML Neb) 1.25 mg Q2H PRN INH 11/13/16 21:30 12/13/16 21:29 Morphine Sulfate (MoRPHine SULFATE INJ) 2 mg Q2H PRN IV 11/14/16 02:45 11/28/16 02:44 11/19/16 12:00 2 MG Morphine Sulfate (MoRPHine SULFATE INJ) 4 mg Q2H PRN IV 11/14/16 02:45 11/28/16 02:44 11/19/16 13:29 4 MG Metoprolol Tartrate 5 mg 5 mg Q4 IV. 11/15/16 08:00 12/15/16 07:59 11/19/16 11:59 5 MG Digoxin 125 mcg/ Syringe 10 ml @ 2 mls/min DAILY@16 IV 11/18/16 09:00 12/18/16 08:59 11/18/16 09:27 2 MLS/MIN Vancomycin HCl 1500 mg/Sodium Chloride 530 ml @ 200 mls/hr Q24H IV 11/19/16 10:00 11/25/16 20:59 11/19/16 10:43 200 MLS/HR Ertapenem/Sodium Chloride (Invanz Iv/Nss Ad-Van 50ml) 50 ml @ 120 mls/hr Q24H IV 11/18/16 18:00 11/27/16 23:59 11/18/16 18:19 120 MLS/HR Vancomycin HCl (Consult) 1 ea UD PRN N/A 11/18/16 12:00 12/18/16 11:59
[2016-11-19] MEDS: DIGOXIN IV 125 MCG in SYRINGE 9.5 ML IV SCH (16:54)
[2016-11-19] MEDS: ERTAPENEM IV 1 GM in SODIUM CHLOR 0.9% AD-VAN 50ML 50 ML IV SCH (18:07)
[2016-11-19] MEDS ORDERED: NURSING VERBAL MED ORDER ONE (18:30)
[2016-11-19] MEDS: SCOPOLAMINE 1.5 MG TDSY TD SCH (20:07)
[2016-11-19] MEDS: PRAVASTATIN SOD 10 MG TAB PO SCH (21:00)
[2016-11-19] MEDS: LATANOPROST 0.005% OP SOLN 2.5 ML BTL OPB SCH (22:18)
[2016-11-20 00:48] VITALS: BP 148/84; PULSE 79
[2016-11-20] MEDS: METOPROLOL TARTRATE 1 MG/ML VIAL IV. SCH ×4 (01:02→13:18)
[2016-11-20] MEDS: MoRPHine SULFATE 2 MG/ML CARP IV PRN ×2 (04:42→12:01)
[2016-11-20] MEDS: HEPARIN SOD 5000 UNIT/0.5 ML CARP SQ SCH ×2 (05:37→14:00)
[2016-11-20 07:01] VITALS: BP 136/83; PULSE 78; TEMP 36.5; O2SAT 95
[2016-11-20 07:34] LABS: HEMATOCRIT 32.1 % (42-52); MEAN CELL VOLUME 84.5 fL (80-100); MEAN CORPUSCULAR HEMOGLOBIN 29.5 pg (25-34); MEAN CORPUSCULAR HGB CONC 34.9 g/dl (32-36); MEAN PLATELET VOLUME 11.4 fL (7.4-10.4); PLATELET COUNT 360 K/uL (130-400); WHITE BLOOD COUNT 21.52 K/uL (4.8-10.8)
[2016-11-20 07:58] LABS: BASO % 0.1 %; BASO ABS # 0.02 K/uL (0-0.2); COMPLETE YES; EOS % 0.4 %; IG% 2.5 %; LYMPH % 8.6 %; LYMPH ABS # 1.85 K/uL (1.2-3.4); NEUT % 86.4 %
[2016-11-20] MEDS: CHECK SCOPOLAMINE PATCH PLACEMENT SCH ×3 (08:00→16:26)
[2016-11-20 08:06] LABS: BUN/CREATININE RATIO 44.9 (10-20); CALCIUM 8.8 mg/dl (8.5-10.1); CREATININE 1.1 mg/dl (0.60-1.40); POTASSIUM 3.9 mmol/L (3.5-5.1)
[2016-11-20] MEDS: CARVEDILOL 6.25 MG TAB PO SCH (08:46)
[2016-11-20] MEDS: ASPIRIN 81 MG ECTAB PO SCH (08:46)
[2016-11-20] MEDS: DOCUSATE SODIUM/SENNA 50/8.6MG TAB PO SCH (08:47)
[2016-11-20] MEDS: CEROVITE ADV FORMULA TAB PO SCH (08:47)
[2016-11-20] MEDS: CYANOCOBALAMIN 500 MCG TAB (VIT B-12) PO SCH (08:47)
[2016-11-20] MEDS: FINASTERIDE 5 MG TAB PO SCH (08:47)
[2016-11-20] MEDS: TIOTROPIUM BROMIDE 5 PUFF/90 MCG INH INH SCH (09:00)
[2016-11-20] MEDS: TRIAMCINOLONE ACET NASAL SPRAY 10.8ML BTL NAE SCH (09:40)
[2016-11-20] MEDS: VANCOMYCIN INJ 1,500 MG in SODIUM CHLORIDE 0.9% 500ML 500 ML IV SCH (09:48)
[2016-11-20 15:15] VITALS: O2SAT 95
--- NOTE | 2016-11-20 15:57 | Progress Note ---
Medicine Progress Note Date & Time of Visit: Nov 20, 2016 at 15:35. Subjective Pt was seen and examined looks very weak. He is being getting morphine as per family request to keep him comfortable I had a meeting with the family member yesterday that is going to make comfort measure today if he is not making any improvement. This morning I met with the 2 grand kids, and I spoke to the son Dylan (oldest) on speaker phone while the grand kids were there. Dylan is in charge to make decision for the patient. Family met with palliative care Aydee 2 days ago, and Aydee explained to them in detail about comfort measures. Dylan said that family agreed to change the code status to comfort measure only. Objective Last 8 Hrs Date Time Temp Pulse Resp B/P Pulse Ox O2 Delivery O2 Flow Rate FiO2 11/20/16 13:18 82 138/70 11/20/16 09:42 74 129/86 11/20/16 09:30 Nasal Cannula 3.0 Physical Exam: General- no acute distress Head- atraumatic Eyes- PERRL, anicteric ENT- oropharynx clear Neck- supple, no JVD Lungs- Coarse BS Heart- irregular rhythm Abdomen- normal bowel sounds, soft Extremities- no calf tenderness Neuro- awake, move extremities Skin- warm & dry Laboratory Results: Last 24 Hours Test 11/20/16 06:28 White Blood Count 21.52 K/uL Red Blood Count 3.80 M/uL Hemoglobin 11.2 g/dL Hematocrit 32.1 % Mean Corpuscular Volume 84.5 fL Mean Corpuscular Hemoglobin 29.5 pg Mean Corpuscular Hemoglobin Concent 34.9 g/dl Platelet Count 360 K/uL Mean Platelet Volume 11.4 fL Neutrophils (%) (Auto) 86.4 % Lymphocytes (%) (Auto) 8.6 % Monocytes (%) (Auto) 2.0 % Eosinophils (%) (Auto) 0.4 % Basophils (%) (Auto) 0.1 % Neutrophils # (Auto) 18.59 K/uL Lymphocytes # (Auto) 1.85 K/uL Monocytes # (Auto) 0.43 K/uL Eosinophils # (Auto) 0.09 K/uL Basophils # (Auto) 0.02 K/uL RDW Standard Deviation 50.6 fL RDW Coefficient of Variation 16.4 % Immature Granulocyte % (Auto) 2.5 % Immature Granulocyte # (Auto) 0.54 K/uL Red Blood Cell Morphology Unremarkable Sodium Level 150 mmol/L Potassium Level 3.9 mmol/L Chloride Level 116 mmol/L Carbon Dioxide Level 22 mmol/L Anion Gap 12.0 mmol/L Blood Urea Nitrogen 49 mg/dl Creatinine 1.10 mg/dl Est Creatinine Clear Calc Drug Dose 49.4 ml/min Estimated GFR () 69.1 Estimated GFR (Non- 59.6 BUN/Creatinine Ratio 44.9 Random Glucose 75 mg/dl Calcium Level 8.8 mg/dl Assessment & Plan Sepsis secondary to UTI due to Bear Catheter and Gm negative Bacteremia Met the criteria of Sepsis on admission Lactic acid-normal Has had Hypotension on admission-Improved with IVF UTI secondary to Extended Spectrum Beta-Lactamase bacteria, Blood Culture-Gm neg Bacilli in one bottle Urine Culture on 11/11/16 -ESBL ,Repeat Culture-E Coli and Enterococcus Blood cx ESCHERICHIA COLI Target Route Dose RX AB Cost M.I.C. IQ ------ ----- ------ -- ------ -------- - ------ TRIMET/SULFA S <=238 AMPICILLIN R >16 AMPICILLIN/SUL I 16/8 CEFAZOLIN R >16 CEFOTAXIME R >32 CEFTRIAXONE R >32 CEFEPIME R >16 CEFUROXIME R >16 IMIPENEM S <=1 GENTAMICIN S <=4 TOBRAMYCIN S <=4 AMIKACIN S <=16 CIPROFLOXACIN R >2 LEVOFLOXACIN R >4 ERTAPENEM S <=1 PIP/TAZO S <=16 Urine Cx E COLI E FAECALIS M.I.C. RX M.I.C. RX --------- ------ --------- ------ TRIMET/SULFA <=2/38 S AMPICILLIN >16 R <=2 S AMPICILLIN/SUL 16/8 I CEFAZOLIN >16 R CEFOTAXIME >32 R CEFTRIAXONE >32 R CEFEPIME >16 R CEFUROXIME >16 R IMIPENEM <=1 S GENT SYNERGY >500 R VANCOMYCIN 2 S PENICILLIN 8 S GENTAMICIN <=4 S TOBRAMYCIN <=4 S AMIKACIN <=16 S CIPROFLOXACIN >2 R LEVOFLOXACIN >4 R ERTAPENEM <=1 S DAPTOMYCIN 1 S NITROFURANTOIN 64 I <=32 S PIP/TAZO <=16 S STREP SYNERGY >1000 R ID was consulted Recommendation: Abx changed to ertapenem and IV vanco was added WBC slightly increased family decided to change code status to comfort measures only Meeting today with the Grand Kids and Dylan who was on speaker phone, feels a little sick was not about to come Dylan is in charge to make decision. consent was obtained to change code status and nurse was witnessed and confirmed. family is aware that we will discontinue IV abx, and all medications, will stop vital sign and lab. Morphine, scopolamine, Ativan added for comfort measures only. family wants to continue with suctioning. Atrial Fibrillation with RVR AF likely secondary to Sepsis Has been on IV BB Rate is not controlled will increase digoxin to 125mcg daily if HR not controlled BP was in the low side if BP improved will continue with the Lopressor IV No anticoagulation Family wants him to be comfortable for now They don't want any cardiology consult for now and no cardiac intervention Ok with family to transfer to medical Hypernatremia Likely secondary to Dehydration Continue IVF and recheck Made comfort measure Coronary artery disease with a history of cardiac stent, Asymptomatic Continue with aspirin and resume his Coreg for low blood pressure. Poor oral intake Failed swallow eval no tube feeding for now as per family palliative care was consulted and met with family Family would give 24hrs after changing made in the ABx before making a decision to comfort measure Made comfort measure Hypertension. His blood pressure seems to be low at this time, likely secondary to sepsis. BP stable Acute Renal Failure on Chronic kidney disease. Creatine is 1.2 Comfort measure FACUNDO On CPAP Can use his own CPAP machine GI Px on PPI DVT px on SQ heparin. Code Status to comfort measure Continued [facility] stay due to: multiple IV medications needed, home environment unsafe for pt Discharge planning: uncertain Consultants: Palliative care ID Speech PT/OT Current Inpatient Medications: Current Inpatient Medications Medications (Trade) Dose Ordered Sig/Dina Route Start Time Stop Time Status Last Admin Dose Admin Aspirin (Ecotrin Tab) 81 mg DAILY PO 11/14/16 09:00 12/14/16 08:59 Future Hold Carvedilol (Coreg Tab) 6.25 mg BID PO 11/13/16 21:00 12/13/16 20:59 Future Hold Finasteride (Proscar Tab) 5 mg DAILY PO 11/14/16 09:00 12/14/16 08:59 Future Hold Folic Acid (Folvite Tab) 1 mg DAILY PO 11/14/16 09:00 12/14/16 08:59 Future Hold Latanoprost (Xalatan Oph Soln) 1 drops QPM OPB 11/13/16 21:00 12/13/16 20:59 Future Hold 11/19/16 22:18 1 DROPS Multivitamins/ Minerals (Multivitamin W/ Minerals Tab) 1 tab DAILY PO 11/14/16 09:00 12/14/16 08:59 Future Hold Nitroglycerin (Nitrostat Tab) 0.4 mg UD PRN UT 11/13/16 13:00 12/13/16 12:59 Future Hold Pravastatin Sodium (Pravachol Tab) 10 mg HS PO 11/13/16 21:00 12/13/16 20:59 Future Hold Senna/Docusate Sodium (Senokot S Tab) 1 tab BID PO 11/13/16 21:00 12/13/16 20:59 Future Hold Tiotropium [place] (Spiriva Handihaler Inhaler) 1 puff DAILY INH 11/14/16 09:00 12/14/16 08:59 Future Hold Tramadol HCl (Ultram Tab) 100 mg Q6H PRN PO 11/13/16 13:00 12/13/16 12:59 Future Hold Triamcinolone Acetonide (Nasacort Allergy 24hr) 2 sprays QAM KAYLEEN 11/14/16 09:00 12/14/16 08:59 Future Hold 11/20/16 09:40 2 SPRAYS Miscellaneous Information (Order Awaiting Action) 1 ea QS N/A 11/13/16 16:00 12/13/16 15:59 Cyanocobalamin (Vitamin B-12 Tab) 1,000 mcg DAILY PO 11/14/16 09:00 12/14/16 08:59 Future Hold Heparin Sodium (Porcine) (Heparin Sq 5000 Unit/0.5ml) 5,000 unit Q8 SQ 11/13/16 22:00 12/13/16 21:59 Future Hold 11/20/16 05:37 5,000 UNIT Ipratropium [place] (Atrovent 0.02% 0.5MG/2.5ML Neb) 0.5 mg Q2H PRN INH 11/13/16 21:30 12/13/16 21:29 Levalbuterol (Xopenex 1.25MG/ 0.5ML Neb) 1.25 mg Q2H PRN INH 11/13/16 21:30 12/13/16 21:29 Morphine Sulfate (MoRPHine SULFATE INJ) 2 mg Q2H PRN IV 11/14/16 02:45 11/28/16 02:44 11/20/16 12:01 2 MG Morphine Sulfate (MoRPHine SULFATE INJ) 4 mg Q2H PRN IV 11/14/16 02:45 11/28/16 02:44 11/19/16 18:07 4 MG Metoprolol Tartrate 5 mg 5 mg Q4 IV. 11/15/16 08:00 12/15/16 07:59 Future Hold 11/20/16 13:18 5 MG Digoxin 125 mcg/ Syringe 10 ml @ 2 mls/min DAILY@16 IV 11/18/16 09:00 12/18/16 08:59 Future Hold 11/19/16 16:54 2 MLS/MIN Vancomycin HCl 1500 mg/Sodium Chloride 530 ml @ 200 mls/hr Q24H IV 11/19/16 10:00 11/25/16 20:59 Future Hold 11/20/16 09:48 200 MLS/HR Ertapenem/Sodium Chloride (Invanz Iv/Nss Ad-Van 50ml) 50 ml @ 120 mls/hr Q24H IV 11/18/16 18:00 11/27/16 23:59 Future Hold 11/19/16 18:07 120 MLS/HR Vancomycin HCl (Consult) 1 ea UD PRN N/A 11/18/16 12:00 12/18/16 11:59 Future Hold Scopolamine (Transderm-Scop Patch) 1.5 mg Q3D@1830 TD 11/19/16 18:30 12/19/16 18:29 11/19/16 20:07 1.5 MG Miscellaneous (Remove Transderm-Scop Patch) 1 ea Q3D@1829 N/A 11/19/16 18:29 12/19/16 18:28 11/19/16 20:07 1 EA Miscellaneous Information 1 ea 1 ea QS N/A 11/20/16 00:00 12/20/16 00:00 11/20/16 08:00 1 EA Lorazepam/Syringe (Ativan Inj/ Syringe) 1 ml @ 0.5 mls/min Q2R PRN IV 11/20/16 15:45 12/20/16 15:44 UNV
[2016-11-20] MEDS ORDERED: NURSING VERBAL MED ORDER ONE (17:00)
[2016-11-20] MEDS: MoRPHine SULFATE 4 MG/ML 1 ML CARP\\VIAL IV PRN ×2 (17:49→22:24)
[2016-11-20] MEDS: ATROPINE SULFATE 1% OP SOLN 2 ML BTL SL PRN (17:49)
[2016-11-21] MEDS: LORAZEPAM INJ 1 MG in SYRINGE 0.5 ML IV PRN ×3 (00:30→08:58)
[2016-11-21] MEDS: ATROPINE SULFATE 1% OP SOLN 2 ML BTL SL PRN ×2 (00:31→08:58)
[2016-11-21] MEDS: MoRPHine SULFATE 4 MG/ML 1 ML CARP\\VIAL IV PRN (02:50)
[2016-11-21] MEDS: CHECK SCOPOLAMINE PATCH PLACEMENT SCH ×3 (08:58→15:48)
[2016-11-21] MEDS ORDERED: VANCOMYCIN TROUGH SCH (09:30)
[2016-11-21] MEDS: MoRPHine SULFATE 2 MG/ML CARP IV PRN (13:33)
--- NOTE | 2016-11-21 14:38 | Progress Note ---
Medicine Progress Note Date & Time of Visit: Nov 21, 2016 at 14:27. Subjective Pt was seen and examined sleeping comfortable family made comfort measure yesterday Objective Last 8 Hrs Date Time Temp Pulse Resp B/P Pulse Ox O2 Delivery O2 Flow Rate FiO2 11/21/16 08:30 Nasal Cannula 3.0 Physical Exam: General- sleeping Head- atraumatic Eyes- PERRL, anicteric ENT- oropharynx clear Neck- supple, no JVD Lungs- Coarse BS Heart- irregular rhythm Abdomen- normal bowel sounds, soft Extremities- no calf tenderness Neuro- sleeping, PERRL Skin- warm & dry Assessment & Plan Comfort measure only continue Morphine, ativan, scopolamine continue monitor pt Sepsis secondary to UTI due to Bear Catheter and Gm negative Bacteremia Met the criteria of Sepsis on admission Lactic acid-normal Has had Hypotension on admission-Improved with IVF UTI secondary to Extended Spectrum Beta-Lactamase bacteria, Blood Culture-Gm neg Bacilli in one bottle Urine Culture on 11/11/16 -ESBL ,Repeat Culture-E Coli and Enterococcus Blood cx ESCHERICHIA COLI Target Route Dose RX AB Cost M.I.C. IQ ------ ----- ------ -- ------ -------- - ------ TRIMET/SULFA S <=2/38 AMPICILLIN R >16 AMPICILLIN/SUL I 16/8 CEFAZOLIN R >16 CEFOTAXIME R >32 CEFTRIAXONE R >32 CEFEPIME R >16 CEFUROXIME R >16 IMIPENEM S <=1 GENTAMICIN S <=4 TOBRAMYCIN S <=4 AMIKACIN S <=16 CIPROFLOXACIN R >2 LEVOFLOXACIN R >4 ERTAPENEM S <=1 PIP/TAZO S <=16 Urine Cx E COLI E FAECALIS M.I.C. RX M.I.C. RX --------- ------ --------- ------ TRIMET/SULFA <=2/38 S AMPICILLIN >16 R <=2 S AMPICILLIN/SUL 16/8 I CEFAZOLIN >16 R CEFOTAXIME >32 R CEFTRIAXONE >32 R CEFEPIME >16 R CEFUROXIME >16 R IMIPENEM <=1 S GENT SYNERGY >500 R VANCOMYCIN 2 S PENICILLIN 8 S GENTAMICIN <=4 S TOBRAMYCIN <=4 S AMIKACIN <=16 S CIPROFLOXACIN >2 R LEVOFLOXACIN >4 R ERTAPENEM <=1 S DAPTOMYCIN 1 S NITROFURANTOIN 64 I <=32 S PIP/TAZO <=16 S STREP SYNERGY >1000 R ID was consulted Recommendation: Abx changed to ertapenem and IV vanco was added WBC slightly increased family decided to change code status to comfort measures only Meeting today with the Grand Kids and Dylan who was on speaker phone, feels a little sick was not about to come Dylan is in charge to make decision. consent was obtained to change code status and nurse was witnessed and confirmed. family is aware that we will discontinue IV abx, and all medications, will stop vital sign and lab. Morphine, scopolamine, Ativan added for comfort measures only. family wants to continue with suctioning. 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 His blood pressure seems to be low at this time, likely secondary to sepsis. BP stable D/C BP meds since pt was made comfort measure only Acute Renal Failure on Chronic kidney disease. Creatine is 1.2 Comfort measure FACUNDO On CPAP Can use his own CPAP machine on oxygen supplement Code Status to comfort measure Continued [facility] stay due to: multiple IV medications needed, home environment unsafe for pt Discharge planning: uncertain Consultants: Palliative care ID Speech PT/OT Current Inpatient Medications: Current Inpatient Medications Medications (Trade) Dose Ordered Sig/Dina Route Start Time Stop Time Status Last Admin Dose Admin Aspirin (Ecotrin Tab) 81 mg DAILY PO 11/14/16 09:00 12/14/16 08:59 Future Hold Carvedilol (Coreg Tab) 6.25 mg BID PO 11/13/16 21:00 12/13/16 20:59 Future Hold Finasteride (Proscar Tab) 5 mg DAILY PO 11/14/16 09:00 12/14/16 08:59 Future Hold Folic Acid (Folvite Tab) 1 mg DAILY PO 11/14/16 09:00 12/14/16 08:59 Future Hold Latanoprost (Xalatan Oph Soln) 1 drops QPM OPB 11/13/16 21:00 12/13/16 20:59 Future Hold 11/19/16 22:18 1 DROPS Multivitamins/ Minerals (Multivitamin W/ Minerals Tab) 1 tab DAILY PO 11/14/16 09:00 12/14/16 08:59 Future Hold Nitroglycerin (Nitrostat Tab) 0.4 mg UD PRN UT 11/13/16 13:00 12/13/16 12:59 Future Hold Pravastatin Sodium (Pravachol Tab) 10 mg HS PO 11/13/16 21:00 12/13/16 20:59 Future Hold Senna/Docusate Sodium (Senokot S Tab) 1 tab BID PO 11/13/16 21:00 12/13/16 20:59 Future Hold Tiotropium [place] (Spiriva Handihaler Inhaler) 1 puff DAILY INH 11/14/16 09:00 12/14/16 08:59 Future Hold Tramadol HCl (Ultram Tab) 100 mg Q6H PRN PO 11/13/16 13:00 12/13/16 12:59 Future Hold Triamcinolone Acetonide (Nasacort Allergy 24hr) 2 sprays QAM KAYLEEN 11/14/16 09:00 12/14/16 08:59 Future Hold 11/20/16 09:40 2 SPRAYS Miscellaneous Information (Order Awaiting Action) 1 ea QS N/A 11/13/16 16:00 12/13/16 15:59 Cyanocobalamin (Vitamin B-12 Tab) 1,000 mcg DAILY PO 11/14/16 09:00 12/14/16 08:59 Future Hold Heparin Sodium (Porcine) (Heparin Sq 5000 Unit/0.5ml) 5,000 unit Q8 SQ 11/13/16 22:00 12/13/16 21:59 Future Hold 11/20/16 05:37 5,000 UNIT Ipratropium [place] (Atrovent 0.02% 0.5MG/2.5ML Neb) 0.5 mg Q2H PRN INH 11/13/16 21:30 12/13/16 21:29 Levalbuterol (Xopenex 1.25MG/ 0.5ML Neb) 1.25 mg Q2H PRN INH 11/13/16 21:30 12/13/16 21:29 Morphine Sulfate (MoRPHine SULFATE INJ) 2 mg Q2H PRN IV 11/14/16 02:45 11/28/16 02:44 11/21/16 13:33 2 MG Morphine Sulfate (MoRPHine SULFATE INJ) 4 mg Q2H PRN IV 11/14/16 02:45 11/28/16 02:44 11/21/16 02:50 4 MG Metoprolol Tartrate 5 mg 5 mg Q4 IV. 11/15/16 08:00 12/15/16 07:59 Future Hold 11/20/16 13:18 5 MG Digoxin 125 mcg/ Syringe 10 ml @ 2 mls/min DAILY@16 IV 11/18/16 09:00 12/18/16 08:59 Future Hold 11/19/16 16:54 2 MLS/MIN Vancomycin HCl 1500 mg/Sodium Chloride 530 ml @ 200 mls/hr Q24H IV 11/19/16 10:00 11/25/16 20:59 Future Hold 11/20/16 09:48 200 MLS/HR Ertapenem/Sodium Chloride (Invanz Iv/Nss Ad-Van 50ml) 50 ml @ 120 mls/hr Q24H IV 11/18/16 18:00 11/27/16 23:59 Future Hold 11/19/16 18:07 120 MLS/HR Vancomycin HCl (Consult) 1 ea UD PRN N/A 11/18/16 12:00 12/18/16 11:59 Future Hold Scopolamine (Transderm-Scop Patch) 1.5 mg Q3D@1830 TD 11/19/16 18:30 12/19/16 18:29 11/19/16 20:07 1.5 MG Miscellaneous (Remove Transderm-Scop Patch) 1 ea Q3D@1829 N/A 11/19/16 18:29 12/19/16 18:28 11/19/16 20:07 1 EA Miscellaneous Information 1 ea 1 ea QS N/A 11/20/16 00:00 12/20/16 00:00 11/21/16 08:58 1 EA Lorazepam/Syringe (Ativan Inj/ Syringe) 1 ml @ 0.5 mls/min Q2H PRN IV 11/20/16 15:45 12/20/16 15:44 11/21/16 08:58 0.5 MLS/MIN Atropine Sulfate (ATROPINE SULFATE 1% Op Soln 2 ML) 4 drops Q6H PRN SL 11/20/16 17:00 12/20/16 16:59 11/21/16 08:58 4 DROPS
[2016-11-22] MEDS: LORAZEPAM INJ 1 MG in SYRINGE 0.5 ML IV PRN ×5 (01:26→22:39)
[2016-11-22] MEDS: MoRPHine SULFATE 4 MG/ML 1 ML CARP\\VIAL IV PRN ×6 (04:07→21:24)
[2016-11-22] MEDS: CHECK SCOPOLAMINE PATCH PLACEMENT SCH ×3 (09:11→16:12)
[2016-11-22] MEDS: SCOPOLAMINE 1.5 MG TDSY TD SCH (18:41)
--- NOTE | 2016-11-22 19:39 | Progress Note ---
Medicine Progress Note Date & Time of Visit: Nov 22, 2016 at 19:31. 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 Lying in bed breathing a little heavy Son Dylan in the room He would like us to give pt something to help with the body temperature Pt is sedated, has not made the moaning sound Objective Last 8 Hrs Date Time Temp Pulse Resp B/P Pulse Ox O2 Delivery O2 Flow Rate FiO2 11/22/16 16:00 Nasal Cannula 2.0 Physical Exam: General- sleeping Head- atraumatic Eyes- PERRL, anicteric ENT- oropharynx clear Neck- supple, no JVD Lungs- Coarse BS, tachypneic Heart- irregular rhythm Abdomen- normal bowel sounds, soft Extremities- no calf tenderness Neuro- sleeping, PERRL Skin- warm & dry Assessment & Plan Comfort measure only continue Morphine, ativan, scopolamine continue monitor pt May increase ativan or morphine if continue tachypneic Hand feels warm, will do ice pack as tolerated for few minutes Sepsis secondary to UTI due to Bear Catheter and Gm negative Bacteremia Met the criteria of Sepsis on admission Lactic acid-normal Has had Hypotension on admission-Improved with IVF UTI secondary to Extended Spectrum Beta-Lactamase bacteria, Blood Culture-Gm neg Bacilli in one bottle Urine Culture on 11/11/16 -ESBL ,Repeat Culture-E Coli and Enterococcus Blood cx ESCHERICHIA COLI Target Route Dose RX AB Cost M.I.C. IQ ------ ----- ------ -- ------ -------- - ------ TRIMET/SULFA S <=/38 AMPICILLIN R >16 AMPICILLIN/SUL I 16/8 CEFAZOLIN R >16 CEFOTAXIME R >32 CEFTRIAXONE R >32 CEFEPIME R >16 CEFUROXIME R >16 IMIPENEM S <=1 GENTAMICIN S <=4 TOBRAMYCIN S <=4 AMIKACIN S <=16 CIPROFLOXACIN R >2 LEVOFLOXACIN R >4 ERTAPENEM S <=1 PIP/TAZO S <=16 Urine Cx E COLI E FAECALIS M.I.C. RX M.I.C. RX --------- ------ --------- ------ TRIMET/SULFA <=2/38 S AMPICILLIN >16 R <=2 S AMPICILLIN/SUL 16/8 I CEFAZOLIN >16 R CEFOTAXIME >32 R CEFTRIAXONE >32 R CEFEPIME >16 R CEFUROXIME >16 R IMIPENEM <=1 S GENT SYNERGY >500 R VANCOMYCIN 2 S PENICILLIN 8 S GENTAMICIN <=4 S TOBRAMYCIN <=4 S AMIKACIN <=16 S CIPROFLOXACIN >2 R LEVOFLOXACIN >4 R ERTAPENEM <=1 S DAPTOMYCIN 1 S NITROFURANTOIN 64 I <=32 S PIP/TAZO <=16 S STREP SYNERGY >1000 R ID was consulted Recommendation: Abx changed to ertapenem and IV vanco was added WBC slightly increased family decided to change code status to comfort measures only Meeting today with the Grand Kids and Dylan who was on speaker phone, feels a little sick was not about to come Dylan is in charge to make decision. consent was obtained to change code status and nurse was witnessed and confirmed. family is aware that we will discontinue IV abx, and all medications, will stop vital sign and lab. Morphine, scopolamine, Ativan added for comfort measures only. family wants to continue with suctioning. 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 His blood pressure seems to be low at this time, likely secondary to sepsis. BP stable D/C BP meds since pt was made comfort measure only Acute Renal Failure on Chronic kidney disease. Creatine is 1.2 Comfort measure FACUNDO On CPAP Can use his own CPAP machine on oxygen supplement Code Status to comfort measure Continued [facility] stay due to: multiple IV medications needed, home environment unsafe for pt Discharge planning: uncertain Consultants: Palliative care ID Speech PT/OT Current Inpatient Medications: Current Inpatient Medications Medications (Trade) Dose Ordered Sig/Dina Route Start Time Stop Time Status Last Admin Dose Admin Aspirin (Ecotrin Tab) 81 mg DAILY PO 11/14/16 09:00 12/14/16 08:59 Future Hold Carvedilol (Coreg Tab) 6.25 mg BID PO 11/13/16 21:00 12/13/16 20:59 Future Hold Finasteride (Proscar Tab) 5 mg DAILY PO 11/14/16 09:00 12/14/16 08:59 Future Hold Folic Acid (Folvite Tab) 1 mg DAILY PO 11/14/16 09:00 12/14/16 08:59 Future Hold Latanoprost (Xalatan Oph Soln) 1 drops QPM OPB 11/13/16 21:00 12/13/16 20:59 Future Hold 11/19/16 22:18 1 DROPS Multivitamins/ Minerals (Multivitamin W/ Minerals Tab) 1 tab DAILY PO 11/14/16 09:00 12/14/16 08:59 Future Hold Nitroglycerin (Nitrostat Tab) 0.4 mg UD PRN UT 11/13/16 13:00 12/13/16 12:59 Future Hold Pravastatin Sodium (Pravachol Tab) 10 mg HS PO 11/13/16 21:00 12/13/16 20:59 Future Hold Senna/Docusate Sodium (Senokot S Tab) 1 tab BID PO 11/13/16 21:00 12/13/16 20:59 Future Hold Tiotropium [place] (Spiriva Handihaler Inhaler) 1 puff DAILY INH 11/14/16 09:00 12/14/16 08:59 Future Hold Tramadol HCl (Ultram Tab) 100 mg Q6H PRN PO 11/13/16 13:00 12/13/16 12:59 Future Hold Triamcinolone Acetonide (Nasacort Allergy 24hr) 2 sprays QAM KAYLEEN 11/14/16 09:00 12/14/16 08:59 Future Hold 11/20/16 09:40 2 SPRAYS Miscellaneous Information (Order Awaiting Action) 1 ea QS N/A 11/13/16 16:00 12/13/16 15:59 Cyanocobalamin (Vitamin B-12 Tab) 1,000 mcg DAILY PO 11/14/16 09:00 12/14/16 08:59 Future Hold Heparin Sodium (Porcine) (Heparin Sq 5000 Unit/0.5ml) 5,000 unit Q8 SQ 11/13/16 22:00 12/13/16 21:59 Future Hold 11/20/16 05:37 5,000 UNIT Ipratropium [place] (Atrovent 0.02% 0.5MG/2.5ML Neb) 0.5 mg Q2H PRN INH 11/13/16 21:30 12/13/16 21:29 Levalbuterol (Xopenex 1.25MG/ 0.5ML Neb) 1.25 mg Q2H PRN INH 11/13/16 21:30 12/13/16 21:29 Morphine Sulfate (MoRPHine SULFATE INJ) 2 mg Q2H PRN IV 11/14/16 02:45 11/28/16 02:44 11/21/16 13:33 2 MG Morphine Sulfate (MoRPHine SULFATE INJ) 4 mg Q2H PRN IV 11/14/16 02:45 11/28/16 02:44 11/22/16 18:44 4 MG Metoprolol Tartrate 5 mg 5 mg Q4 IV. 11/15/16 08:00 12/15/16 07:59 Future Hold 11/20/16 13:18 5 MG Digoxin 125 mcg/ Syringe 10 ml @ 2 mls/min DAILY@16 IV 11/18/16 09:00 12/18/16 08:59 Future Hold 11/19/16 16:54 2 MLS/MIN Vancomycin HCl 1500 mg/Sodium Chloride 530 ml @ 200 mls/hr Q24H IV 11/19/16 10:00 11/25/16 20:59 Future Hold 11/20/16 09:48 200 MLS/HR Ertapenem/Sodium Chloride (Invanz Iv/Nss Ad-Van 50ml) 50 ml @ 120 mls/hr Q24H IV 11/18/16 18:00 11/27/16 23:59 Future Hold 11/19/16 18:07 120 MLS/HR Vancomycin HCl (Consult) 1 ea UD PRN N/A 11/18/16 12:00 12/18/16 11:59 Future Hold Scopolamine (Transderm-Scop Patch) 1.5 mg Q3D@1830 TD 11/19/16 18:30 12/19/16 18:29 11/22/16 18:41 1.5 MG Miscellaneous (Remove Transderm-Scop Patch) 1 ea Q3D@1829 N/A 11/19/16 18:29 12/19/16 18:28 11/22/16 18:40 1 EA Miscellaneous Information 1 ea 1 ea QS N/A 11/20/16 00:00 12/20/16 00:00 11/22/16 16:12 1 EA Lorazepam/Syringe (Ativan Inj/ Syringe) 1 ml @ 0.5 mls/min Q2H PRN IV 11/20/16 15:45 12/20/16 15:44 11/22/16 17:53 0.5 MLS/MIN Atropine Sulfate (ATROPINE SULFATE 1% Op Soln 2 ML) 4 drops Q6H PRN SL 11/20/16 17:00 12/20/16 16:59 11/21/16 08:58 4 DROPS
[2016-11-23] MEDS: CHECK SCOPOLAMINE PATCH PLACEMENT SCH ×3 (00:15→15:42)
[2016-11-23] MEDS: MoRPHine SULFATE 4 MG/ML 1 ML CARP\\VIAL IV PRN ×2 (00:21→06:03)
--- NOTE | 2016-11-23 17:56 | Progress Note ---
Medicine Progress Note Date & Time of Visit: Nov 23, 2016 at 17:49. Subjective Pt was seen and examined Lying in bed sedated looks comfortable with family at bedside. Son would like patient to stay in the hospital on comfort measure Objective Last 8 Hrs Date Time Temp Pulse Resp B/P Pulse Ox O2 Delivery O2 Flow Rate FiO2 11/23/16 16:25 Nasal Cannula 2.0 Physical Exam: General- sedated Head- atraumatic Eyes- anicteric ENT- oropharynx clear Neck- supple, no JVD Lungs- Coarse BS Heart- irregular rhythm Abdomen- normal bowel sounds, soft Neuro- Sedated Skin- warm & dry Assessment & Plan Comfort measure only continue Morphine, ativan, scopolamine continue monitor pt May increase ativan or morphine if continue tachypneic On comfort measures Sedated on morphine and Ativan Sepsis secondary to UTI due to Bear Catheter and Gm negative Bacteremia Met the criteria of Sepsis on admission Lactic acid-normal Has had Hypotension on admission-Improved with IVF UTI secondary to Extended Spectrum Beta-Lactamase bacteria, Blood Culture-Gm neg Bacilli in one bottle Urine Culture on 11/11/16 -ESBL ,Repeat Culture-E Coli and Enterococcus Blood cx ESCHERICHIA COLI Target Route Dose RX AB Cost M.I.C. IQ ------ ----- ------ -- ------ -------- - ------ TRIMET/SULFA S <=2/38 AMPICILLIN R >16 AMPICILLIN/SUL I 16/8 CEFAZOLIN R >16 CEFOTAXIME R >32 CEFTRIAXONE R >32 CEFEPIME R >16 CEFUROXIME R >16 IMIPENEM S <=1 GENTAMICIN S <=4 TOBRAMYCIN S <=4 AMIKACIN S <=16 CIPROFLOXACIN R >2 LEVOFLOXACIN R >4 ERTAPENEM S <=1 PIP/TAZO S <=16 Urine Cx E COLI E FAECALIS M.I.C. RX M.I.C. RX --------- ------ --------- ------ TRIMET/SULFA <=2/38 S AMPICILLIN >16 R <=2 S AMPICILLIN/SUL 16/8 I CEFAZOLIN >16 R CEFOTAXIME >32 R CEFTRIAXONE >32 R CEFEPIME >16 R CEFUROXIME >16 R IMIPENEM <=1 S GENT SYNERGY >500 R VANCOMYCIN 2 S PENICILLIN 8 S GENTAMICIN <=4 S TOBRAMYCIN <=4 S AMIKACIN <=16 S CIPROFLOXACIN >2 R LEVOFLOXACIN >4 R ERTAPENEM <=1 S DAPTOMYCIN 1 S NITROFURANTOIN 64 I <=32 S PIP/TAZO <=16 S STREP SYNERGY >1000 R ID was consulted Recommendation: Abx changed to ertapenem and IV vanco was added WBC slightly increased family decided to change code status to comfort measures only Meeting today with the Grand Kids and Dylan who was on speaker phone, feels a little sick was not about to come Dylan is in charge to make decision. consent was obtained to change code status and nurse was witnessed and confirmed. family is aware that we will discontinue IV abx, and all medications, will stop vital sign and lab. Morphine, scopolamine, Ativan added for comfort measures only. 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 His blood pressure seems to be low at this time, likely secondary to sepsis. BP stable D/C BP meds since pt was made comfort measure only Acute Renal Failure on Chronic kidney disease. Creatine is 1.2 Comfort measure FACUNDO On CPAP Can use his own CPAP machine on oxygen supplement Code Status to comfort measure Continued [facility] stay due to: multiple IV medications needed, home environment unsafe for pt Discharge planning: uncertain Consultants: Palliative care ID Speech PT/OT Current Inpatient Medications: Current Inpatient Medications Medications (Trade) Dose Ordered Sig/Dina Route Start Time Stop Time Status Last Admin Dose Admin Aspirin (Ecotrin Tab) 81 mg DAILY PO 11/14/16 09:00 12/14/16 08:59 Future Hold Carvedilol (Coreg Tab) 6.25 mg BID PO 11/13/16 21:00 12/13/16 20:59 Future Hold Finasteride (Proscar Tab) 5 mg DAILY PO 11/14/16 09:00 12/14/16 08:59 Future Hold Folic Acid (Folvite Tab) 1 mg DAILY PO 11/14/16 09:00 12/14/16 08:59 Future Hold Latanoprost (Xalatan Oph Soln) 1 drops QPM OPB 11/13/16 21:00 12/13/16 20:59 Future Hold 11/19/16 22:18 1 DROPS Multivitamins/ Minerals (Multivitamin W/ Minerals Tab) 1 tab DAILY PO 11/14/16 09:00 12/14/16 08:59 Future Hold Nitroglycerin (Nitrostat Tab) 0.4 mg UD PRN UT 11/13/16 13:00 12/13/16 12:59 Future Hold Pravastatin Sodium (Pravachol Tab) 10 mg HS PO 11/13/16 21:00 12/13/16 20:59 Future Hold Senna/Docusate Sodium (Senokot S Tab) 1 tab BID PO 11/13/16 21:00 12/13/16 20:59 Future Hold Tiotropium [place] (Spiriva Handihaler Inhaler) 1 puff DAILY INH 11/14/16 09:00 12/14/16 08:59 Future Hold Tramadol HCl (Ultram Tab) 100 mg Q6H PRN PO 11/13/16 13:00 12/13/16 12:59 Future Hold Triamcinolone Acetonide (Nasacort Allergy 24hr) 2 sprays QAM KAYLEEN 11/14/16 09:00 12/14/16 08:59 Future Hold 11/20/16 09:40 2 SPRAYS Miscellaneous Information (Order Awaiting Action) 1 ea QS N/A 11/13/16 16:00 12/13/16 15:59 Cyanocobalamin (Vitamin B-12 Tab) 1,000 mcg DAILY PO 11/14/16 09:00 12/14/16 08:59 Future Hold Heparin Sodium (Porcine) (Heparin Sq 5000 Unit/0.5ml) 5,000 unit Q8 SQ 11/13/16 22:00 12/13/16 21:59 Future Hold 11/20/16 05:37 5,000 UNIT Ipratropium [place] (Atrovent 0.02% 0.5MG/2.5ML Neb) 0.5 mg Q2H PRN INH 11/13/16 21:30 12/13/16 21:29 Levalbuterol (Xopenex 1.25MG/ 0.5ML Neb) 1.25 mg Q2H PRN INH 11/13/16 21:30 12/13/16 21:29 Morphine Sulfate (MoRPHine SULFATE INJ) 2 mg Q2H PRN IV 11/14/16 02:45 11/28/16 02:44 11/21/16 13:33 2 MG Morphine Sulfate (MoRPHine SULFATE INJ) 4 mg Q2H PRN IV 11/14/16 02:45 11/28/16 02:44 11/23/16 06:03 4 MG Metoprolol Tartrate 5 mg 5 mg Q4 IV. 11/15/16 08:00 12/15/16 07:59 Future Hold 11/20/16 13:18 5 MG Digoxin 125 mcg/ Syringe 10 ml @ 2 mls/min DAILY@16 IV 11/18/16 09:00 12/18/16 08:59 Future Hold 11/19/16 16:54 2 MLS/MIN Vancomycin HCl 1500 mg/Sodium Chloride 530 ml @ 200 mls/hr Q24H IV 11/19/16 10:00 11/25/16 20:59 Future Hold 11/20/16 09:48 200 MLS/HR Ertapenem/Sodium Chloride (Invanz Iv/Nss Ad-Van 50ml) 50 ml @ 120 mls/hr Q24H IV 11/18/16 18:00 11/27/16 23:59 Future Hold 11/19/16 18:07 120 MLS/HR Vancomycin HCl (Consult) 1 ea UD PRN N/A 11/18/16 12:00 12/18/16 11:59 Future Hold Scopolamine (Transderm-Scop Patch) 1.5 mg Q3D@1830 TD 11/19/16 18:30 12/19/16 18:29 11/22/16 18:41 1.5 MG Miscellaneous (Remove Transderm-Scop Patch) 1 ea Q3D@1829 N/A 11/19/16 18:29 12/19/16 18:28 11/22/16 18:40 1 EA Miscellaneous Information 1 ea 1 ea QS N/A 11/20/16 00:00 12/20/16 00:00 11/23/16 15:42 1 EA Lorazepam/Syringe (Ativan Inj/ Syringe) 1 ml @ 0.5 mls/min Q2H PRN IV 11/20/16 15:45 12/20/16 15:44 11/22/16 22:39 0.5 MLS/MIN Atropine Sulfate (ATROPINE SULFATE 1% Op Soln 2 ML) 4 drops Q6H PRN SL 11/20/16 17:00 12/20/16 16:59 11/21/16 08:58 4 DROPS
[2016-11-24] MEDS: CHECK SCOPOLAMINE PATCH PLACEMENT SCH ×4 (00:38→23:12)
[2016-11-24] MEDS: MoRPHine SULFATE 4 MG/ML 1 ML CARP\\VIAL IV PRN ×5 (00:39→16:42)
--- NOTE | 2016-11-24 20:29 | Progress Note ---
Medicine Progress Note Date & Time of Visit: Nov 24, 2016 at 20:22. Subjective Comfort care measures, patient non-verbal. see below Objective Last 8 Hrs Date Time Temp Pulse Resp B/P Pulse Ox O2 Delivery O2 Flow Rate FiO2 11/24/16 15:29 Nasal Cannula 2.0 Physical Exam: Pt is resting comfortably in bed. Does not appear agitated Mouth-breathing, eyes open but not focusing Breathing 12-16 times per minute Assessment & Plan Daughter at bedside and says that he appears calm Discussed things with nurse who is comfortable with current PRN Morphine dosing. Has not received ativan in last 36 hours. Offered morphine drip to daughter, who will discuss with brother/POA Cont comfort care measures at this time. Active Problems prior to comfort care measures: Sepsis 2/2 UTI 2/2 Bear catheter and GN bacteremia Afib with RVR Hypernatremia h/o CAD s/p PCI HTN ARF on CKD [facility] Contin[facility] stay due to: multiple IV medications needed, home environment unsafe for pt Discharge planning: uncertain Consultants: Palliative care ID Speech PT/OT Current Inpatient Medications: Current Inpatient Medications Medications (Trade) Dose Ordered Sig/Dina Route Start Time Stop Time Status Last Admin Dose Admin Scopolamine (Transderm-Scop Patch) 1.5 mg Q3D@1830 TD 11/19/16 18:30 12/19/16 18:29 11/22/16 18:41 1.5 MG Miscellaneous (Remove Transderm-Scop Patch) 1 ea Q3D@1829 N/A 11/19/16 18:29 12/19/16 18:28 11/22/16 18:40 1 EA Miscellaneous Information 1 ea 1 ea QS N/A 11/20/16 00:00 12/20/16 00:00 11/24/16 16:39 1 EA Lorazepam/Syringe (Ativan Inj/ Syringe) 1 ml @ 0.5 mls/min Q2H PRN IV 11/20/16 15:45 12/20/16 15:44 11/22/16 22:39 0.5 MLS/MIN Atropine Sulfate (ATROPINE SULFATE 1% Op Soln 2 ML) 4 drops Q6H PRN SL 11/20/16 17:00 12/20/16 16:59 11/21/16 08:58 4 DROPS Morphine Sulfate (MoRPHine SULFATE INJ) 4 mg Q2H PRN IV 11/24/16 18:00 12/08/16 17:59
[2016-11-25] MEDS: MoRPHine SULFATE 4 MG/ML 1 ML CARP\\VIAL IV PRN ×2 (06:58→11:34)
[2016-11-25] MEDS: CHECK SCOPOLAMINE PATCH PLACEMENT SCH ×2 (08:00→16:07)
[2016-11-25 11:32] VITALS: BP 73/59; PULSE 102; TEMP 37.1
[2016-11-25] MEDS: SCOPOLAMINE 1.5 MG TDSY TD SCH (18:30)
--- NOTE | 2016-11-25 18:47 | Discharge Instructions ---
Discharge Instructions Admission Reason for Admission: Acute Renal Failure,Atrial Fibrillation W/Rapid Discharge Discharge Diagnosis / Problem: Discharge Goals Goal(s): Specific goals (N/A) Activity Recommendations Activity Limitations: as noted below (N/A) . Current Hospital Diet Patient's current hospital diet: Discharge Diet Recommended Diet: N/A Pending Studies Studies pending at discharge: no Medical Emergencies . Who to Call and When: Medical Emergencies: If at any time you feel your situation is an emergency, please call 911 immediately. . Non-Emergent Contact Non-Emergency issues call your: Primary Care Provider . . "Provider Documentation" section prepared by Ginny Barger. VTE Core Measure Inpt VTE Proph given/why not?: Unfractionated heparin SQ
--- NOTE | 2016-11-30 20:49 | Discharge Summary ---
Discharge Summary Admission Date: Nov 13, 2016 at 12:32 Discharge Date: Nov 25, 2016 Discharge Disposition: Principal Diagnosis: sepsis 2/2 UTI and bacteremia Consultations: Palliative care ID Speech PT/OT Medication Reconciliation Discontinued Medications: Acetaminophen Tab (Tylenol) 325 Mg Tab 650 MG PO Q4H PRN for Pain or Fever, TAB Allopurinol (Zyloprim) 300 Mg Tab 300 MG PO DAILY, TAB Aspirin (Ecotrin Low Strength) 81 Mg Tab 81 MG PO DAILY, TAB Brimonidine Tartrate (Alphagan P Oph) 0.1 % Lola 1 DROP OPB TID, ML Calcium Carbonate-Vitamin D (Calcium + D) 1 Tab Tab 1 TAB PO DAILY Carvedilol (Coreg) 6.25 Mg Tab 6.25 MG PO BID, TAB Cyanocobalamin (Vitamin B12) 1,000 Mcg Tab 1000 MCG PO DAILY Diclofenac Sod (Voltaren 1% Top Gel) Gel 1 APPLN TOP BID Doxycycline Hyclate (Doxycycline Hyclate) 100 Mg Cap 100 MG PO BID for 7 Days, #14 Ferrous Sulfate (Iron Supplement) 325 Mg Tab 325 MG PO DAILY, TAB Finasteride (Proscar) 5 Mg Tab 5 MG PO DAILY, TAB Fish Oil (Walker-3) Oil 300 MG PO TID Folic Acid (Folvite) 1 Mg Tab 1 MG PO DAILY, TAB Gabapentin (Neurontin) 800 Mg Tab 800 MG PO QID, TAB Ipratropium-Albuterol (Duoneb) 3 Ml Nebu 1 TREATMENT INH QID, INHA Latanoprost 0.005% Oph (Xalatan 0.005% Oph) Soln 1 DROP OPB QPM Lisinopril (Zestril) 10 Mg Tab 10 MG PO QAM, TAB Multivitamins/Minerals (Mvi With Minerals) Tab 1 TAB PO DAILY, TAB Nitroglycerin (Nitrostat) 0.4 Mg Tab 0.4 MG UT UD PRN for Chest Pain, BTL Ocuvite Preservision (Ocuvite Preservision) 1 Tab Tab 1 TAB PO BID, TAB Potassium Chloride (K-Tab) 20 Meq Tab 20 MEQ PO BID Pravastatin Sod (Pravastatin Sodium) 10 Mg Tab 10 MG PO HS Senna/Docusate Sod (Senokot S) 1 Tab Tab 1 TAB PO BID, TAB Terazosin Hcl (Hytrin) 10 Mg Cap 10 MG PO BID, CAP Tiotropium [place] (Spiriva Handihaler) 30 Puff/540 Mcg Aerp 1 CAP INH DAILY, INHALER Tramadol (Ultram) 50 Mg Tab 100 MG PO Q6H PRN for Pain, TAB Triamcinolone Acetonide (Nasal (Nasacort-Aq Nasal Inh) 55 Mcg/ Spr 2 SPRAYS KAYLEEN QAM, BTL Admission Information HPI (per Admitting provider): HISTORY OF PRESENT COMPLAINT: He is an 86-year-old male with a significant past medical history including coronary artery disease status post RCA stent in 2008, chronic kidney disease stage III, hyperlipidemia, gout, heterozygous for factor V Leiden mutation, hypertension, obstructive sleep apnea on CPAP, and also benign prostatic hypertrophy, has a chronic indwelling catheter, apparently he resides in [facility]. He was noted to have declining in his general condition for the last few days. He has not been eating or drinking enough and this morning he did not take his oral medications and noted to have further declination of his health and he was advised to come to the hospital. On of this month, he has had a urine test that showed E. coli with ESBL strain and the caring doctor in the [facility] wanted to give IV antibiotic, but no IV medication could be given at [facility] and the patient was transferred to hospital for ongoing treatment. On the way to the hospital, the ambulance crew noticed to have heart rate to be irregular and going up 140 at times. At [facility] on the medical floor, he was not having any acute distress, but EKG did show aFib with a rate of 139 and his blood pressure was systolic 80. From that point, he was transferred to telemetry unit for continuation of care. He was started with intravenous fluid and also blood cultures are taken and he was started with ertapenem IV route. Physical Exam (per Admitting): PHYSICAL EXAMINATION: GENERAL: On the medical floor, he was not having any acute distress. VITAL SIGNS: Temperature 37.0, pulse 130s blood pressure 88/60, saturation 96% on room air, respirations 20. HEENT: Unremarkable. NECK: Supple. No JVD, no bruit. CHEST: Clear to auscultate. HEART: S1, S2 regular. ABDOMEN: Soft, benign. Bowel sounds present. No masses. EXTREMITIES: Negative for any edema. CENTRAL NERVOUS SYSTEM: He was alert and awake, pleasantly confused. Hospital Course Sepsis secondary to UTI due to Bear Catheter and Gm negative Bacteremia Met the criteria of Sepsis on admission Lactic acid-normal Has had Hypotension on admission-Improved with IVF UTI secondary to Extended Spectrum Beta-Lactamase bacteria, Blood Culture-Gm neg Bacilli in one bottle Urine Culture on 11/11/16 -ESBL ,Repeat Culture-E Coli and Enterococcus ID was consulted Recommendation: Abx changed to ertapenem and IV vanco was added WBC slightly increased family decided to change code status to comfort measures only Meeting today with the Grand Kids and Dylan who was on speaker phone, feels a little sick was not about to come Dylan is in charge to make decision. consent was obtained to change code status and nurse was witnessed and confirmed. family is aware that we will discontinue IV abx, and all medications, will stop vital sign and lab. Morphine, scopolamine, Ativan added for comfort measures only. 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 His blood pressure seems to be low at this time, likely secondary to sepsis. BP stable D/C BP meds since pt was made comfort measure only Acute Renal Failure on Chronic kidney disease. Creatine is 1.2 Comfort measure FACUNDO On CPAP Can use his own CPAP machine on oxygen supplement Code Status to comfort measure--pt on 11/25/16 with his daughter at the bedside Total time spent on discharge = 60 minutes This includes examination of the patient, discharge planning, medication reconciliation, and communication with other providers. Discharge Instructions N/A-pt Additional Copies To [facility]
== END 2016-11-25 19:00 | disposition expired | DRG 698 ==
LOC: ENRESERVTM → ENRESERVDT → C.3E 12:32 → C.2E 13:33 → EDBEDREQSVC 11-19 11:06 → C.MS2W 11-19 13:10
PROVIDERS: ADMIT Internal Medicine; ATTEND Hospitalist
DX: T83.518A Infection and inflammatory reaction due to other urinary catheter, initial encounter (principal); A41.9 Sepsis, unspecified organism; G93.41 Metabolic encephalopathy; N17.9 Acute kidney failure, unspecified; E87.0 Hyperosmolality and hypernatremia; N39.0 Urinary tract infection, site not specified; D68.51 Activated protein C resistance; Z95.5 Presence of coronary angioplasty implant and graft; I12.9 Hypertensive chronic kidney disease with stage 1 through stage 4 chronic kidney disease, or unspecified chronic kidney disease; I25.10 Atherosclerotic heart disease of native coronary artery without angina pectoris; N18.3 Chronic kidney disease, stage 3 (moderate); E78.5 Hyperlipidemia, unspecified; M10.9 Gout, unspecified; G47.33 Obstructive sleep apnea (adult) (pediatric); N40.0 Benign prostatic hyperplasia without lower urinary tract symptoms; I48.91 Unspecified atrial fibrillation; Z98.52 Vasectomy status; Z80.9 Family history of malignant neoplasm, unspecified; Z83.3 Family history of diabetes mellitus; Z82.49 Family history of ischemic heart disease and other diseases of the circulatory system; E86.0 Dehydration; B95.2 Enterococcus as the cause of diseases classified elsewhere; Z86.14 Personal history of Methicillin resistant Staphylococcus aureus infection; Z66 Do not resuscitate; Z51.5 Encounter for palliative care; F03.90 Unspecified dementia, unspecified severity, without behavioral disturbance, psychotic disturbance, mood disturbance, and anxiety; Z79.899 Other long term (current) drug therapy; Z88.8 Allergy status to other drugs, medicaments and biological substances; Z88.0 Allergy status to penicillin; Z88.1 Allergy status to other antibiotic agents